=== PATIENT | male | born 1975 | race Caucasian/White ===

== ENCOUNTER 2016-12-08 20:30 | Emergency (ER) | payer MEDICAID ==
[2016-12-08] MEDS ORDERED: IBUPROFEN 200 MG TAB PO ONE (20:44)
--- NOTE | 2016-12-08 20:48 | EDPHY ---
H & P Stated Complaint: WALKING ALL DAY NOW BILAT FOOT PAIN AND BLISTERS Time Seen by Provider: 12/08/16 20:39 HPI/ROS: CHIEF COMPLAINT: Bilateral feet pain and blisters HISTORY OF PRESENT ILLNESS: 41-year-old homeless male with self-described poor fitting shoes taken ambulance to the emergency department complaining of blisters bilateral 1st and 2nd toes. Atraumatic. He self-medicated with alcohol and marijuana before coming to the ER. Denies abdominal pain. Denies chest pain. Denies nausea or vomiting. No burn. PRIMARY CARE PROVIDER: none REVIEW OF SYSTEMS: A ten point review of systems was performed and is negative with the exception of the items mentioned in the HPI PAST MEDICAL & SURGICAL HISTORY: No pertinent medical or surgical history SOCIAL HISTORY: Positive alcohol and marijuana use earlier today PHYSICAL EXAM (Prior to examination, patient consented to physical exam, hands were washed and my usual and customary physical exam procedures followed) 1) GENERAL: Well-developed, well-nourished, alert and oriented. Appears uncomfortable 2) HEAD: Normocephalic, atraumatic 3) HEENT: sclera anicteric . 4) NECK: Full range of motion, no meningeal signs. 5) LUNGS: Clear auscultation bilaterally 6) HEART: Regular rate and rhythm. 7) ABDOMEN: No guarding, no rebound, no focal tenderness, 8) MUSCULOSKELETAL: the patient has bilateral 1st and 2nd toes he has non infected blisters. No erythema. No induration. Soft compartments bilaterally. Negative Homans no palpable cord. DP PT pulses present and brisk bilaterally brisk capillary refill. Normal color normal temperature feet. 9) BACK: no visual or palpable abnormality. 10) SKIN: Blister to the toes 11) Psychiatric: Patient is oriented X 3, there is no agitation. DIFFERENTIAL DIAGNOSIS: no particular include but limited to cellulitis, blisters, trench foot - Personal History Current Tetanus/Diphtheria Vaccine: Yes Current Tetanus Diphtheria and Acellular Pertussis (TDAP): Yes - Medical/Surgical History Hx Asthma: No Hx Chronic Respiratory Disease: No Hx Diabetes: No Hx Cardiac Disease: No Hx Renal Disease: No Hx Cirrhosis: No Hx Alcoholism: No Hx HIV/AIDS: No Hx Splenectomy or Spleen Trauma: No Other PMH: ORTHO INJURIES. HERNIA REPAIR - Social History Smoking Status: Current every day smoker Constitutional: Initial Vital Signs Temperature (C) 36.5 C 12/08/16 20:34 Heart Rate 112 H 12/08/16 20:34 Respiratory Rate 18 12/08/16 20:34 Blood Pressure 139/82 H 12/08/16 20:34 O2 Sat (%) 97 12/08/16 20:34 O2 Delivery Mode Room Air Allergies/Adverse Reactions: No Known Allergies Allergy (Unverified 12/08/16 20:35) Home Medications: Medication Instructions Recorded NK [No Known Home Meds] 02/07/16 Medical Decision Making ED Course/Re-evaluation: I do not identify an emergent condition requiring requiring further diagnostic studies. He has no evidence of cellulitis or compartment syndrome. He has been given a fresh pair of socks and ibuprofen. Recommend elevation. Usual and customary feet and wound precautions provided. - Data Points Medications Given: Discontinued Medications Ibuprofen (Motrin) 800 mg PO EDNOW ONE Stop: 12/08/16 20:45 Last Admin: 12/08/16 21:00 Dose: 800 mg Departure - Departure Disposition: Home, Routine, Self-Care Clinical Impression: Blister of foot without infection Qualifiers: Encounter type: initial encounter Laterality: left Qualified Code(s): S90.822A - Blister (nonthermal), left foot, initial encounter Condition: Good Instructions: Blister (ED) Additional Instructions: Return to the ER if you develop redness, swelling, discharge, warmth to the wound, red streaks going up your leg, or any other symptoms that concern you. Referrals: [facility],. [Clinic] - 1-2 days without fail
[2016-12-08 21:05] VITALS: BP 128/82; PULSE 99; RESP 20; TEMP 97.9; O2SAT 96
== END 2016-12-08 21:18 | disposition home or self-care (01) ==
LOC: EDUNIT#
DX: R23.8 Other skin changes (principal); F17.200 Nicotine dependence, unspecified, uncomplicated

== ENCOUNTER 2017-12-01 15:17 | Emergency (ER) | payer MEDICAID ==
[~2017-12-01 15:17] MED LIST: CEPHALEXIN 500 MG CAP PO SCH; SULFAMETHOX/TMP 800/160 MG 1 TAB PO SCH
[2017-12-01] MEDS ORDERED: HYDROCODONE/APAP 5/325 TAB PO ONE (16:05)
[2017-12-01] MEDS ORDERED: IBUPROFEN 600 MG TAB PO ONE (16:05)
--- NOTE | 2017-12-01 16:11 | EDPHY ---
H & P Stated Complaint: L thumb-hand wrist up to elbow pain x 2 weeks--no known trauma Time Seen by Provider: 12/01/17 15:55 HPI/ROS: Chief complaint: Left thumb pain History of present illness: This is a 42-year-old male who presents to the emergency department for left thumb pain. Patient reports the onset of pain over the last 2 and a half weeks. There has been associated swelling. He believes this is secondary to frostbite as it began after he spent a night outside as he is homeless. He denies other potential precipitating factors including no trauma. No report of abnormal coolness in the thumb. No fevers. No other lesions. Review of systems: A 10 point review of systems was obtained and other than described above was negative - Personal History Current Tetanus/Diphtheria Vaccine: Yes Current Tetanus Diphtheria and Acellular Pertussis (TDAP): Yes Tetanus Vaccine Date: 2015 - Medical/Surgical History Hx Asthma: No Hx Chronic Respiratory Disease: No Hx Diabetes: No Hx Cardiac Disease: No Hx Renal Disease: No Hx Cirrhosis: No Hx Alcoholism: No Hx HIV/AIDS: No Hx Splenectomy or Spleen Trauma: No Other PMH: ORTHO INJURIES. HERNIA REPAIR - Social History Smoking Status: Current every day smoker - Physical Exam Exam: General Appearance: Alert and no distress. Eyes: Pupils equal and round no injection. Respiratory: Chest is non tender, lungs are clear to auscultation. Cardiac: regular rate and rhythm Gastrointestinal: Abdomen is soft and non tender, no masses, bowel sounds normal. Musculoskeletal: The patient is still able to move the PIP joint in the MCP joint of the left thumb. The rest the digits are unremarkable. Skin: Erythema and edema to the distal phalanx region of the left thumb. No red streaking suggestive of enteritis. Constitutional: Initial Vital Signs Temperature (C) 37.0 C 12/01/17 15:43 Heart Rate 91 12/01/17 15:43 Respiratory Rate 20 12/01/17 15:43 Blood Pressure 150/110 H 12/01/17 15:43 O2 Sat (%) 99 12/01/17 15:43 O2 Delivery Mode Room Air Allergies/Adverse Reactions: No Known Allergies Allergy (Verified 12/01/17 15:43) Home Medications: Medication Instructions Recorded Cephalexin [Keflex (*)] 500 mg PO QID 10 Days cap 12/01/17 Sulfamethox/Tmp 800/160 mg 1 tab PO BID 10 Days tab 12/01/17 [Bactrim Ds] Medical Decision Making - Diagnostics Imaging Results: Imaging Impressions Finger X-Ray 12/01/17 16:05 Impression: Suspicious for osteomyelitis of the tip of the thumb. If there is no clinical or laboratory evidence for infection, then a lytic tumor cannot be excluded. If the latter is pertinent, then MRI without and with contrast would be recommended. Imaging: I viewed and interpreted images myself ED Course/Re-evaluation: Patient is discussed with my primary supervising physician Dr. Belén Arthur. Patient presents to the emergency department for left thumb pain. Clinically it appears he has a cellulitis. X-ray is suspicious for an osteomyelitis. I have offered the patient admission to the hospital for further care. He has declined. I have had a lengthy discussion with him that if this infection is not controlled it could progress rapidly resulting in much more severe problems including loss of his digit or systemic infection that could result in . He has voiced understanding and still wishes to be discharged. He is competent to make this decision. He is given a dose of IV Ancef here in the emergency room. He is given the actual prescriptions of both Bactrim and Keflex. He is asked to return if symptoms worsen or if he changes his mind about admission. Patient voiced understanding. Differential Diagnosis: Included but not limited to cellulitis, osteomyelitis, felon, infectious tenosynovitis - Data Points Laboratory Results: Laboratory Results 12/01/17 17:35 12/01/17 17:35 12/01/17 12/01/17 17:35 17:35 WBC 11.73 10^3/uL H 10^3/uL (3.80-9.50) RBC 4.16 10^6/uL L 10^6/uL (4.40-6.38) Hgb 12.2 g/dL L g/dL (13.7-17.5) Hct 36.8 % L % (40.0-51.0) MCV 88.5 fL fL (81.5-99.8) MCH 29.3 pg pg (27.9-34.1) MCHC 33.2 g/dL g/dL (32.4-36.7) RDW 14.5 % % (11.5-15.2) Plt Count 254 10^3/uL 10^3/uL (150-400) MPV 11.8 fL H fL (8.7-11.7) Neut % (Auto) 72.9 % % (39.3-74.2) Lymph % (Auto) 13.9 % L % (15.0-45.0) [place] % (Auto) 11.5 % % (4.5-13.0) Eos % (Auto) 1.2 % % (0.6-7.6) Baso % (Auto) 0.2 % L % (0.3-1.7) Nucleat RBC Rel Count 0.0 % % (0.0-0.2) Absolute Neuts (auto) 8.56 10^3/uL H 10^3/uL (1.70-6.50) Absolute Lymphs (auto) 1.63 10^3/uL 10^3/uL (1.00-3.00) Absolute Monos (auto) 1.35 10^3/uL H 10^3/uL (0.30-0.80) Absolute Eos (auto) 0.14 10^3/uL 10^3/uL (0.03-0.40) Absolute Basos (auto) 0.02 10^3/uL 10^3/uL (0.02-0.10) Absolute Nucleated RBC 0.00 10^3/uL 10^3/uL (0-0.01) Immature Gran % 0.3 % % (0.0-1.1) Immature Gran # 0.03 10^3/uL 10^3/uL (0.00-0.10) Sodium 142 mEq/L mEq/L (135-145) Potassium 4.2 mEq/L mEq/L (3.5-5.2) Chloride 106 mEq/L mEq/L (97-110) Carbon Dioxide 24 mEq/l mEq/l (22-31) Anion Gap 12 mEq/L mEq/L (8-16) BUN 19 mg/dL mg/dL (7-23) Creatinine 0.8 mg/dL mg/dL (0.7-1.3) Estimated GFR > 60 Glucose 115 mg/dL H mg/dL (70-100) Calcium 8.8 mg/dL mg/dL (8.5-10.4) Medications Given: Discontinued Medications Hydrocodone Bitart/Acetaminophen ([place] 5/325) 1 tab PO EDNOW ONE Stop: 12/01/17 16:06 Last Admin: 12/01/17 16:10 Dose: 1 tab Sodium Chloride (Ns) 500 mls @ 1,000 mls/hr IV EDNOW ONE PRN Reason: Protocol Stop: 12/01/17 17:24 Last Admin: 12/01/17 17:35 Dose: 500 mls Vancomycin/Sodium Chloride (Vancomycin 1 Gm (Premix)) 250 mls @ 250 mls/hr IV EDNOW ONE PRN Reason: Protocol Stop: 12/01/17 17:55 Last Admin: 12/01/17 17:44 Dose: Not Given Cefazolin Sodium/Dextrose (Ancef 1 Gm (Premix)) 50 mls @ 200 mls/hr IV EDNOW ONE Stop: 12/01/17 17:59 Last Admin: 12/01/17 17:42 Dose: 50 mls Ibuprofen (Motrin) 600 mg PO EDNOW ONE Stop: 12/01/17 16:06 Last Admin: 12/01/17 16:10 Dose: 600 mg Trimethoprim/Sulfamethoxazole (Bactrim Ds) 1 ea PO EDNOW ONE PRN Reason: Protocol Stop: 12/01/17 17:02 Last Admin: 12/01/17 17:34 Dose: 1 ea Departure - Departure Disposition: Against Medical Advice Clinical Impression: Cellulitis of thumb, left, Osteomyelitis Condition: Fair Instructions: Cellulitis (ED), Osteomyelitis (ED) Additional Instructions: You have been offered admission to the hospital. You have declined. This is against medical advice. You have a potentially serious infection that could lead to loss of her thumb Referrals: NONE *PRIMARY CARE P,. [Primary Care Provider] - As per Instructions Selena Mcgowan MD [Medical Doctor] - As per Instructions [facility],. [Clinic] - As per Instructions Prescriptions: Cephalexin [Keflex (*)] 500 mg PO QID 10 Days cap Sulfamethox/Tmp 800/160 mg [Bactrim Ds] 1 tab PO BID 10 Days tab
[2017-12-01] MEDS ORDERED: NS 500 ML IV ONE (16:55)
[2017-12-01] MEDS ORDERED: VANCOMYCIN HCL/NORMAL SALINE 250 ML IV ONE (16:56)
[2017-12-01] MEDS ORDERED: ceFAZolin 1 GM in NS 100 ML IV ONE (17:01)
[2017-12-01] MEDS ORDERED: SULFAMETHOX/TMP 800/160 MG 1 TAB PO ONE (17:01)
[2017-12-01 18:26] LABS: PLATELET COUNT 254 10^3/uL (150-400)
[2017-12-01 19:49] VITALS: BP 138/76
== END 2017-12-01 18:45 | disposition left against medical advice (07) ==
DX: L03.012 Cellulitis of left finger (principal); M86.9 Osteomyelitis, unspecified; E86.9 Volume depletion, unspecified; F17.200 Nicotine dependence, unspecified, uncomplicated
CPT/HCPCS: 96365; J0690

== ENCOUNTER 2017-12-02 04:05 | Inpatient (IN) | payer MEDICAID ==
[2017-12-02] MEDS ORDERED: KETOROLAC 15 MG/1 ML SDV IVP ONE (05:10)
[2017-12-02] MEDS ORDERED: NS 1,000 ML IV ONE (05:10)
[2017-12-02] MEDS ORDERED: HYDROmorphONE/DILAUDID 2 MG/ML INJ IVP ONE (05:10)
[2017-12-02 05:41] LABS: PLATELET COUNT 238 10^3/uL (150-400)
--- NOTE | 2017-12-02 05:41 | EDPHY ---
H & P Stated Complaint: L thumb pain seen yesterday Time Seen by Provider: 12/02/17 04:44 HPI/ROS: HPI The patient presents with left thumb pain which has been present for the last several days and getting progressively worse. He was seen in the emergency department earlier today, diagnosed with osteomyelitis, received Ancef and vancomycin, felt better and said that he wanted to go home though it was recommended that he be admitted. He was discharged with Keflex and Bactrim. He has not filled these prescriptions. His pain is more severe in his thumb seems more swollen to him now. He has not any fevers or chills. He denies any trauma to the area.. REVIEW OF SYSTEMS Constitutional: No fever, no chills. Eyes: No discharge. ENT: No sore throat. Cardiovascular: No chest pain, no palpitations. Respiratory: No cough, no shortness of breath. Gastrointestinal: No abdominal pain, no vomiting. Genitourinary: No hematuria. Musculoskeletal: No back pain. Skin: No rashes. Neurological: No headache. PMHx: history of hernia repair Soc Hx: Homeless, smoker, PHYSICAL General Appearance: Alert, no distress Eyes: Pupils equal and round no pallor or injection ENT, Mouth: Mucous membranes moist Respiratory: There are no retractions, lungs are clear to auscultation Cardiovascular: Regular rate and rhythm Gastrointestinal: Abdomen is soft and non-tender, no masses, bowel sounds normal Neurological: A&O, moves all extremities Skin: Warm and dry, no rashes Musculoskeletal: Left thumb is diffusely edematous and erythematous, there is mobility at the MCP and PIP joints, however this is limited secondary to pain, he has brisk cap refill of the digit, there is some slight whitish discoloration at the tip of the thumb, the thumb is warm Extremities: symmetrical, full range of motion Psychiatric: Patient is oriented X 3, there is no agitation Source: Patient Exam Limitations: No limitations - Personal History Current Tetanus/Diphtheria Vaccine: Yes Tetanus Vaccine Date: 2015 - Medical/Surgical History Hx Asthma: No Hx Chronic Respiratory Disease: No Hx Diabetes: No Hx Cardiac Disease: No Hx Renal Disease: No Hx Cirrhosis: No Hx Alcoholism: No Hx HIV/AIDS: No Hx Splenectomy or Spleen Trauma: No Other PMH: ORTHO INJURIES. HERNIA REPAIR - Social History Smoking Status: Current every day smoker Constitutional: Initial Vital Signs Temperature (C) 36.3 C 12/02/17 04:07 Heart Rate 111 H 12/02/17 04:07 Respiratory Rate 18 12/02/17 04:07 Blood Pressure 129/83 H 12/02/17 04:07 O2 Sat (%) 99 12/02/17 04:07 O2 Delivery Mode Room Air Allergies/Adverse Reactions: No Known Allergies Allergy (Verified 12/01/17 15:43) Home Medications: Medication Instructions Recorded Cephalexin [Keflex (*)] 500 mg PO QID 10 Days cap 12/01/17 Sulfamethox/Tmp 800/160 mg 1 tab PO BID 10 Days tab 12/01/17 [Bactrim Ds] Medical Decision Making Differential Diagnosis: This is a 42-year-old homeless man who was diagnosed earlier today with left thumb osteomyelitis and received Ancef and vancomycin, he refused admission at that time and was discharged and now returns with worsening thumb pain. This is atraumatic. X-rays were used to diagnose the osteomyelitis earlier. He has not had any systemic signs of illness such as fever, chills, nausea, vomiting. In the emergency department, patient was given IV fluids, he was given medication for pain with some improvement in his symptoms. Labs were checked and revealed an increasing leukocytosis now to 23,000. ESR and CRP are elevated. I did not repeat x-ray given no new trauma. I consulted with the hospitalist Dr. Croft and we plan to admit the patient. I have also consulted with the hand surgeon pharmacy operations specialist Dr. Mcgowan and he will see the patient in consultation later today. The patient was given additional antibiotics and was updated on the treatment plan. Differential diagnosis includes osteomyelitis, felon, paronychia. - Data Points Laboratory Results: Laboratory Results 12/02/17 05:22 12/02/17 05:22 12/02/17 12/02/17 05:22 05:22 WBC 23.57 10^3/uL H 10^3/uL (3.80-9.50) RBC 4.16 10^6/uL L 10^6/uL (4.40-6.38) Hgb 12.4 g/dL L g/dL (13.7-17.5) Hct 36.3 % L % (40.0-51.0) MCV 87.3 fL fL (81.5-99.8) MCH 29.8 pg pg (27.9-34.1) MCHC 34.2 g/dL g/dL (32.4-36.7) RDW 14.6 % % (11.5-15.2) Plt Count 238 10^3/uL 10^3/uL (150-400) MPV 11.1 fL fL (8.7-11.7) Neut % (Auto) 86.9 % H % (39.3-74.2) Lymph % (Auto) 4.5 % L % (15.0-45.0) [place] % (Auto) 7.8 % % (4.5-13.0) Eos % (Auto) 0.1 % L % (0.6-7.6) Baso % (Auto) 0.1 % L % (0.3-1.7) Nucleat RBC Rel Count 0.0 % % (0.0-0.2) Absolute Neuts (auto) 20.48 10^3/uL H 10^3/uL (1.70-6.50) Absolute Lymphs (auto) 1.06 10^3/uL 10^3/uL (1.00-3.00) Absolute Monos (auto) 1.84 10^3/uL H 10^3/uL (0.30-0.80) Absolute Eos (auto) 0.02 10^3/uL L 10^3/uL (0.03-0.40) Absolute Basos (auto) 0.02 10^3/uL 10^3/uL (0.02-0.10) Absolute Nucleated RBC 0.00 10^3/uL 10^3/uL (0-0.01) Immature Gran % 0.6 % % (0.0-1.1) Immature Gran # 0.14 10^3/uL H 10^3/uL (0.00-0.10) RBC/WBC/PLT Morphology TNP Platelet Estimate TNP Smear Review By Pending ESR 30 MM/HR H MM/HR (0-15) Sodium 143 mEq/L mEq/L (135-145) Potassium 4.4 mEq/L mEq/L (3.5-5.2) Chloride 109 mEq/L mEq/L (97-110) Carbon Dioxide 22 mEq/l mEq/l (22-31) Anion Gap 12 mEq/L mEq/L (8-16) BUN 10 mg/dL mg/dL (7-23) Creatinine 0.7 mg/dL mg/dL (0.7-1.3) Estimated GFR > 60 Glucose 92 mg/dL mg/dL (70-100) Calcium 9.0 mg/dL mg/dL (8.5-10.4) C-Reactive Protein 32.7 mg/L H mg/L (<10.0) Medications Given: Oxycodone HCl (Oxycodone Ir) 5 - 10 mg PO Q3HRS PRN PRN Reason: Pain, Severe Able to Take PO Stop: 12/12/17 05:55 Last Admin: 12/02/17 06:43 Dose: 5 mg Discontinued Medications Hydromorphone HCl (Dilaudid) 0.5 mg IVP EDNOW ONE Stop: 12/02/17 05:11 Last Admin: 12/02/17 05:27 Dose: 0.5 mg Sodium Chloride (Ns) 1,000 mls @ 0 mls/hr IV EDNOW ONE; Wide Open PRN Reason: Protocol Stop: 12/02/17 05:11 Last Admin: 12/02/17 05:28 Dose: 1,000 mls Ketorolac Tromethamine (Toradol) 15 mg IVP EDNOW ONE Stop: 12/02/17 05:11 Last Admin: 12/02/17 05:27 Dose: 15 mg Departure - Departure Disposition: [facility] Clinical Impression: Osteomyelitis Qualifiers: Osteomyelitis type: unspecified type Osteomyelitis location: hand Laterality: left Qualified Code(s): M86.9 - Osteomyelitis, unspecified Leukocytosis Qualifiers: Leukocytosis type: unspecified Qualified Code(s): D72.829 - Elevated white blood cell count, unspecified Condition: Fair
[2017-12-02] MEDS ORDERED: ONDANSETRON 4 MG/2 ML VIAL IVP PRN (05:56)
[2017-12-02] MEDS: oxyCODONE IR 5 MG TAB PO PRN ×3 (06:43→20:19)
--- NOTE | 2017-12-02 06:46 | PDGENHP ---
History and Physical - Chief Complaint L thumb pain - History of Present Illness 42 yo homeless M w/ minimal PMHx presents with L thumb pain. Patient states his L thumb has been hurting for a few weeks. Over the last 2 days it has become swollen and much more painful. He does not recall any trauma to his thumb. He has not had any prior infectious issues with his thumb either. He was seen in the ED yesterday and refused admission. He was given oral antibiotics but could not tolerate the pain so he returned to the ED. He admits to using MJ regularly and IV methamphetamine last 3 months ago. He denies any recent IVDU. History Information - Allergies/Home Medication List Allergies/Adverse Reactions: No Known Allergies Allergy (Verified 12/01/17 15:43) I have personally reviewed and updated: family history, medical history - Past Medical History no pertinent PMH - Surgical History Reports: hernia repair - Family History Positive for: hypertension - Social History Smoking Status: Current every day smoker Drug Use: Marijuana, Other (IV meth last 3 months ago) Review of Systems Review of Systems: ROS: 10pt was reviewed & negative except for what was stated in HPI & below Physical Exam Physical Exam: Temp Pulse Resp BP Pulse Ox 36.6 C 94 18 146/98 H 96 12/02/17 06:39 12/02/17 06:39 12/02/17 06:39 12/02/17 06:39 12/02/17 06:39 Constitutional: uncomfortable, unkempt Eyes: PERRL, EOMI Ears, Nose, Mouth, Throat: moist mucous membranes, no oral mucosal ulcers Cardiovascular: no murmur, rub, or gallop, tachycardia Respiratory: no respiratory distress, clear to auscultation Gastrointestinal: normoactive bowel sounds, soft, non-tender abdomen Skin: warm, erythema (L thumb, swollen) Musculoskeletal: full muscle strength, other (Swollen distal L thumb) Neurologic: AAOx3, CN II-XII Intact Psychiatric: interacting appropriately, not anxious Lab Data & Imaging Review 12/02/17 05:22 12/02/17 05:22 WBC 23.57 10^3/uL (3.80-9.50) H 12/02/17 05:22 RBC 4.16 10^6/uL (4.40-6.38) L 12/02/17 05:22 Hgb 12.4 g/dL (13.7-17.5) L 12/02/17 05:22 Hct 36.3 % (40.0-51.0) L 12/02/17 05:22 MCV 87.3 fL (81.5-99.8) 12/02/17 05:22 MCH 29.8 pg (27.9-34.1) 12/02/17 05:22 MCHC 34.2 g/dL (32.4-36.7) 12/02/17 05:22 RDW 14.6 % (11.5-15.2) 12/02/17 05:22 Plt Count 238 10^3/uL (150-400) 12/02/17 05:22 MPV 11.1 fL (8.7-11.7) 12/02/17 05:22 Neut % (Auto) 86.9 % (39.3-74.2) H 12/02/17 05:22 Lymph % (Auto) 4.5 % (15.0-45.0) L 12/02/17 05:22 [place] % (Auto) 7.8 % (4.5-13.0) 12/02/17 05:22 Eos % (Auto) 0.1 % (0.6-7.6) L 12/02/17 05:22 Baso % (Auto) 0.1 % (0.3-1.7) L 12/02/17 05:22 Nucleat RBC Rel Count 0.0 % (0.0-0.2) 12/02/17 05:22 Absolute Neuts (auto) 20.48 10^3/uL (1.70-6.50) H 12/02/17 05:22 Absolute Lymphs (auto) 1.06 10^3/uL (1.00-3.00) 12/02/17 05:22 Absolute Monos (auto) 1.84 10^3/uL (0.30-0.80) H 12/02/17 05:22 Absolute Eos (auto) 0.02 10^3/uL (0.03-0.40) L 12/02/17 05:22 Absolute Basos (auto) 0.02 10^3/uL (0.02-0.10) 12/02/17 05:22 Absolute Nucleated RBC 0.00 10^3/uL (0-0.01) 12/02/17 05:22 Immature Gran % 0.6 % (0.0-1.1) 12/02/17 05:22 Immature Gran # 0.14 10^3/uL (0.00-0.10) H 12/02/17 05:22 RBC/WBC/PLT Morphology TNP 12/02/17 05:22 Platelet Estimate TNP 12/02/17 05:22 ESR 30 MM/HR (0-15) H 12/02/17 05:22 Sodium 143 mEq/L (135-145) 12/02/17 05:22 Potassium 4.4 mEq/L (3.5-5.2) 12/02/17 05:22 Chloride 109 mEq/L (97-110) 12/02/17 05:22 Carbon Dioxide 22 mEq/l (22-31) 12/02/17 05:22 Anion Gap 12 mEq/L (8-16) 12/02/17 05:22 BUN 10 mg/dL (7-23) 12/02/17 05:22 Creatinine 0.7 mg/dL (0.7-1.3) 12/02/17 05:22 Estimated GFR > 60 12/02/17 05:22 Glucose 92 mg/dL (70-100) 12/02/17 05:22 Calcium 9.0 mg/dL (8.5-10.4) 12/02/17 05:22 C-Reactive Protein 32.7 mg/L (<10.0) H 12/02/17 05:22 Imaging Review: L thumb XR (personally reviewed): Suspicious for OM of tip of L thumb. Assessment & Plan Assessment: 42 yo homeless male p/w likely OM of L thumb. Plan: 1. Sepsis 2/2 suspected OM of L thumb - 2/4 SIRS criteria (HR, WBC) present on admission. Thumb pain for 2 weeks; increased swelling and pain over last 2 days. He does not recall trauma or other inciting injury. XR (personally reviewed) suspicious for OM of tip of L thumb. - Blood cultures, ESR/CRP - Vancomycin IV for now, ID consult placed - Hand surgery consulted (Dr. Selena Mcgowan), will see later today - Discussed case w/ Dr. Tena - May need TTE if blood cultures positive to rule out endocarditis 2. Polysubstance abuse - Admit to regular MJ use; also to IV meth use last 3 months ago. - Drug screen ordered Diet - Regular Code - Full Ppx - LMWH Dispo - Admit under inpatient status noting need for IV antibiotics and further diagnostic work-up
[2017-12-02] MEDS: ENOXAPARIN 40 MG/0.4 ML SYR SC SCH ×2 (08:10→08:11)
[2017-12-02] MEDS: VANCOMYCIN 1.25 GM in NS 250 ML IV SCH ×2 (08:10→20:18)
[2017-12-02] MEDS: ACETAMINOPHEN 325 MG TAB PO PRN ×3 (09:21→20:18)
[2017-12-02] MEDS ORDERED: NS 1,000 ML IV SCH (11:00)
[2017-12-02] MEDS: IBUPROFEN 200 MG TAB PO PRN ×2 (11:59→18:17)
--- NOTE | 2017-12-02 12:52 | GCON ---
[f rep st] CONSULTATION DATE OF CONSULTATION: 12/02/2017 REASON FOR CONSULTATION: Infection, distal left thumb. HISTORY: A 42-year-old homeless male who came to [place] about 5 years ago from [place], presents to the emergency room 2 days in a row for left thumb pain. Imaging suggested some distal loss of bone and swelling of his left thumb. Blood cultures were taken from both days and are no growth to date. Patient was admitted for IV antibiotics and surgical management of this wound. Patient has left thumb pain that radiates up his arm. He denies any recent specific injury. 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 He states that his finger has been swelling of the last couple days. He does pick at his nails and bite his cuticles and does feel that this infection could be related. He is unclear whether he has had fevers, but he has had some sweating. No change in weigh, and his appetite is good. He has had a remote history of IV drug use, specifically meth. He has never tried heroin or cocaine. He uses marijuana on a daily basis and less frequently alcohol, which he has self decreased. PAST MEDICAL/SURGICAL HISTORY: Hernia repair. Denies history of MRSA. FAMILY HISTORY: Positive for hypertension. SOCIAL HISTORY: Daily smoker, daily marijuana, occasional alcohol. No methamphetamine for 3 months. He previously worked on [employer] in the [employer] [facility] off [place]. He moved to [place] 5 years ago for a change of pace. He has 4 children and 1 grandchild. He reports past HIV testing that was negative. ALL: NKDA MEDS: vancomycin 1.25gm IV q12h REVIEW OF SYSTEMS: A complete 10-point review of systems was performed and was negative except as mentioned in the HPI. PHYSICAL EXAMINATION: VITAL SIGNS: Blood pressure 137/90, heart rate 92, respiratory rate 16, saturation 96% on room air, temperature 36.8. GENERAL: This is a cooperative muscular but thin male lying in bed in mild distress secondary to some pain. HEENT: Poor dentition. No obvious dental caries. Moist mucous membranes. NECK: Supple. CARDIOVASCULAR: Regular rate. No murmurs. CHEST: Clear to auscultation bilaterally. ABDOMEN: Scaphoid, soft, and nontender. Bowel sounds present. EXTREMITIES: Extensive tattooing, some self tattoos. Left thumb is markedly edematous (roughly 2-3 times size the other thumb) that is tense and very tender to palpation. He has no lymphangitis. NEUROLOGIC: Alert and oriented x4. Moving all 4 extremities equally. Cranial nerves were grossly intact. LABORATORY DATA: White count 23,000, hematocrit 36, platelets 238 with 86% neutrophils. ESR 30. CRP 37. Creatinine 0.7. Blood cultures from the and the 02 of December are pending. Plain film was reviewed personally by me with some loss of distal bony process of the thumb. ASSESSMENT AND PLAN: A 42-year-old male with marked thumb swelling and pain. Suspect underlying abscess and OM. Cannot completely exclude that bony changes on plain film may be related to prior left thumb injury. This infection requires surgical debridement. Suspect complication of paronychia related to biting his nails. Staph and strep coverage with coverage including MRSA due to risk factors, including homeless status, is reasonable. Creatinine is normal. Will continue vancomycin 1.25 g IV q.12; will check a trough before the 4th dose. Will continue to monitor 4 sets of blood cultures. Will await assessment by Orthopedics. May need MRI to better delineate underlying process. Thank you for this consultation. Will continue to follow along on a daily basis. /[id number]/MODL MTDD
--- NOTE | 2017-12-02 13:48 | HOSPPROG ---
Hospitalist Progress Note Assessment/Plan: Patient is a 42-year-old male who presented the emergency room with left thumb pain. He is currently homeless and came to [place] approximately 5 years ago from [facility]. He was seen in the emergency room yesterday and declined admission. He was given oral antibiotics but did not tolerate them. He admits to using cannabis regularly and last IV methamphetamine was approximately 3 months ago. He denies any recent IV drug use. I reviewed his care with Dr. Story. There is concern for underlying abscess. Orthopedics will be seeing him later this afternoon. *sepsis (elevated heart rate, high wbc) -blood cx sent *thumb swelling -concern for abscess -Dr Mcgowan to see *Leukocytosis -due to the above *Polysubstance abuse -Cannibis use Plan: cont the above care. Start IV fluids, patient is very dehydrated. Subjective: [place] is c/o pain on his left thumb area. Objective: Vital Signs Temp Pulse Resp BP Pulse Ox 37.2 C 100 18 140/92 H 97 12/02/17 12:00 12/02/17 12:00 12/02/17 12:00 12/02/17 12:00 12/02/17 12:00 12/01/17 12/02/17 12/03/17 05:59 05:59 05:59 Intake Total 2382 Output Total 1375 Balance 1007 - Physical Exam Constitutional: chronically ill appearing, unkempt Eyes: PERRL, scleral injection Ears, Nose, Mouth, Throat: hearing normal Cardiovascular: regular rate and rhythym, no murmur, rub, or gallop Respiratory: no respiratory distress Skin: other (the left thumb with cracked skin on top of it, base of nail red, tender, swollen) Musculoskeletal: full muscle strength Neurologic: AAOx3 Psychiatric: interacting appropriately ICD10 Worksheet Patient Problems: Problems Problem Status Onset Leukocytosis Acute Osteomyelitis Acute Metacarpal bone fracture Acute
--- NOTE | 2017-12-02 17:22 | PDMN ---
Medical Necessity Medical necessity: est los>2mn for sepsis r/t OM L thumb, w/ elevated HR and WBC ; admit for IV abx, further w/u, ortho consult, follow cx's; comorbid IVDA; per order and H&P
--- NOTE | 2017-12-02 18:39 | GDS ---
[f rep st] DISCHARGE SUMMARY CURRENT COMPLAINT: Left thumb pain. HISTORY OF PRESENT ILLNESS: The patient is a 42-year-old male who states that his thumb has been swo llen and tender for several weeks. It has become apparently more swollen and more painful over the l ast couple of days. He does not remember any trauma particularly to the thumb. He was originally se en in the emergency room, refusing admission. He was given oral antibiotics. He returned to the [facility], however, with significant pain and was then admitted, placed on IV antibiotics. I was asked to see the patient for further evaluation. PHYSICAL EXAMINATION: EXTREMITIES: The patient's thumb is swollen. There does not appear to be any distinct loculation of fluid that is noticeable. He does appear to be neurologically intact to the radial and ulnar border of the thumb, and he is able to use the EPL and FPL without severe pain. He has no streaking up his arm, and he is nontender along the flexor sheath associated with the thumb pa st the MCP joint. LABORATORY DATA: Labs revealed a high white count, as well as a high sedimentation rate and C-reacti ve protein. X-ray exam reveals some lysis of the tip of his distal phalanx of his thumb. ASSESSMENT AND PLAN: The patient is status post left thumb infection. He has been afebrile since hi s visit here today. We will continue to follow his labs since he does not have a distinct loculated area of fluid to debride. We are holding off on doing any surgical treatment at this time. We will continue to follow him during his stay in the hospital. /[id number]/MODL
[2017-12-03] MEDS: oxyCODONE IR 5 MG TAB PO PRN ×5 (01:21→20:58)
[2017-12-03] MEDS: IBUPROFEN 200 MG TAB PO PRN ×3 (01:21→20:58)
[2017-12-03] MEDS: ACETAMINOPHEN 325 MG TAB PO PRN ×3 (04:39→17:14)
[2017-12-03 05:47] LABS: PLATELET COUNT 201 10^3/uL (150-400)
[2017-12-03] MEDS: VANCOMYCIN 1.25 GM in NS 250 ML IV SCH (08:40)
[2017-12-03] MEDS: ENOXAPARIN 40 MG/0.4 ML SYR SC SCH (08:43)
[2017-12-03] MEDS ORDERED: ZOLPIDEM TARTRATE 5 MG TAB PO PRN (08:43)
[2017-12-03] MEDS ORDERED: LORazepam 2 MG/ML INJ IVP ONE ×2 (08:44→11:45)
--- NOTE | 2017-12-03 08:44 | PCMIDPN ---
Assessment/Plan: #Painful and swollen left thumb highly suspicious for complicated paronychia with underlying abscess. Strongly suspect need I and D but orthopedic service unwilling at this point. No change in exam today after 1 days of antibiotics --Will obtain MRI to better delineate underlying disease. --continue vancomycin. Will increase dose to 1 g IV Q 8, okay to give 1.25gm dose now #Drug use: Screen HCV, HBV, HIV meds vancomycin 1.25gm IV q12h, #2 Subjective: patient c/o inability to sleep and pain L thumb Objective: Vital Signs Temp Pulse Resp BP Pulse Ox 36.9 C 79 15 114/64 98 12/03/17 07:46 12/03/17 07:46 12/03/17 07:46 12/03/17 07:46 12/03/17 07:46 Laboratory Results 12/03/17 05:02 12/02/17 12/03/17 12/04/17 05:59 05:59 05:59 Intake Total 4257 Output Total 3800 Balance 457 ESR 33 MM/HR (0-15) H 12/03/17 05:02 C-Reactive Protein 60.6 mg/L (<10.0) H 12/03/17 05:02 - Physical Exam General Appearance: alert, no apparent distress Respiratory: lungs clear, No accessory muscle use Neck: supple Cardiac/Chest: regular rate, rhythm Extremities: inflammation, swelling (distal L thumb), other (Tenderness & swelling distal L thumb, cap refill decreased a bit but lymphangitis, radial pulse intact) Skin: No rash Neuro/Psych: alert, normal mood/affect ICD10 Worksheet Patient Problems: Problems Problem Status Onset Leukocytosis Acute Osteomyelitis Acute Metacarpal bone fracture Acute
--- NOTE | 2017-12-03 10:34 | SOAPPROG ---
SOAP Progress Note Assessment/Plan: Assessment: Plan: -will continue to monitor may need i&d if not responsive to abx 12/03/17 10:33 Subjective: Reports no improvement in pain or sx. Objective: Vital Signs Temp Pulse Resp BP Pulse Ox 36.9 C 79 15 114/64 98 12/03/17 07:46 12/03/17 07:46 12/03/17 07:46 12/03/17 07:46 12/03/17 07:46 Laboratory Results 12/03/17 05:02 12/02/17 12/03/17 12/04/17 05:59 05:59 05:59 Intake Total 4257 Output Total 3800 Balance 457 Thumb still swollen, no improvement from yesterday, erythema and tenderness of distal and prox phalynx - Time Spent With Patient Time Spent With Patient: 10 - Pending Discharge Pending Discharge Within 24 Hours: No Pending Discharge Within 48 Hours: No ICD10 Worksheet Patient Problems: Problems Problem Status Onset Leukocytosis Acute Osteomyelitis Acute Metacarpal bone fracture Acute
[2017-12-03] MEDS ORDERED: GADOBUTROL 10 ML VIAL IVP ONE (12:16)
[2017-12-03 12:59] LABS: HEPATITIS B SURFACE ANTIGEN NEGATIVE (NEGATIVE)
--- NOTE | 2017-12-03 13:15 | HOSPPROG ---
Hospitalist Progress Note Assessment/Plan: Patient is a 42-year-old male who presented the emergency room with left thumb pain. He is currently homeless and came to [place] approximately 5 years ago from [facility]. He was seen in the emergency room one day prior and declined admission. He was given oral antibiotics but did not tolerate them. He admits to using cannabis regularly and last IV methamphetamine was approximately 3 months ago. He denies any recent IV drug use. I rounded and reviewed his care with Dr. Story. There is concern for underlying abscess. First encounter, chart reviewed. *sepsis (elevated heart rate, high wbc) -blood cx positive but not ID -sepsis resolved *thumb swelling -concern for abscess -MRI ordered -appreciate ortho -cont IV vanco *Leukocytosis -due to the above *Polysubstance abuse -Cannibis use *insomnia -ambien Plan: cont the above care. await MRI follow blood cultures Subjective: C/O thumb pain and can't sleep. Objective: Vital Signs Temp Pulse Resp BP Pulse Ox 36.9 C 68 16 124/68 H 97 12/03/17 11:29 12/03/17 11:29 12/03/17 11:29 12/03/17 11:29 12/03/17 11:29 Laboratory Results 12/03/17 05:02 12/02/17 12/03/17 12/04/17 05:59 05:59 05:59 Intake Total 4257 Output Total 3800 Balance 457 - Physical Exam Constitutional: chronically ill appearing, unkempt, cachectic Eyes: PERRL, anicteric sclera, EOMI Ears, Nose, Mouth, Throat: moist mucous membranes, hearing normal, ears appear normal Cardiovascular: regular rate and rhythym, No JVD, No edema Respiratory: no respiratory distress, no rales or rhonchi, clear to auscultation Gastrointestinal: No tenderness, No ascites, No guarding, No rebound Skin: warm, erythema, No induration Musculoskeletal: normal joint ROM, joint tenderness, generalized weakness Neurologic: AAOx3 Psychiatric: not anxious, not encephalopathic, poor insight, poor judgement ICD10 Worksheet Patient Problems: Problems Problem Status Onset Metacarpal bone fracture Acute Osteomyelitis Acute Leukocytosis Acute
[2017-12-03 13:16] LABS: HEPATITIS C ANTIBODY TOTAL REACTIVE (NEGATIVE); HIV TYPE 1 AND 2 NEGATIVE (NEGATIVE)
--- NOTE | 2017-12-03 14:09 | ASMTCMCOM ---
CM Note CM Note Notes: Pt in for L thumb pain, may need I & D and is currently on IV Vanco. Pt is homeless and reports cannabis use and IV meth use 3 mos ago. Ortho and ID involved in pt care. CM to follow. Date Signed: 12/03/2017 02:08 PM Electronically Signed By:JEFF Craft
[2017-12-03] MEDS: VANCOMYCIN HCL/NORMAL SALINE 250 ML IV SCH (17:01)
[2017-12-03] MEDS: MELATONIN 3 MG TAB PO SCH (20:58)
[2017-12-04] MEDS: VANCOMYCIN HCL/NORMAL SALINE 250 ML IV SCH ×2 (00:28→09:23)
[2017-12-04] MEDS: ACETAMINOPHEN 325 MG TAB PO PRN (06:10)
[2017-12-04] MEDS: oxyCODONE IR 5 MG TAB PO PRN ×5 (06:10→23:12)
--- NOTE | 2017-12-04 09:12 | SOAPPROG ---
CHARI Progress Note Assessment/Plan: Assessment: Plan: - pt will undergo I&D for osteomyelitis this afternoon w/ Dr. Mcgowan 12/03/17 10:33 12/04/17 09:11 Subjective: Pt continues to complain of severe pain. Objective: Vital Signs Temp Pulse Resp BP Pulse Ox 36.7 C 83 16 112/80 95 12/04/17 08:00 12/04/17 08:00 12/04/17 08:00 12/04/17 08:00 12/04/17 08:00 Laboratory Results 12/03/17 05:02 12/03/17 12/04/17 12/05/17 05:59 05:59 05:59 Intake Total 4257 790 Output Total 3800 650 Balance 457 140 no improvement over yesterday - Time Spent With Patient Time Spent With Patient: 5 - Pending Discharge Pending Discharge Within 24 Hours: No Pending Discharge Within 48 Hours: No ICD10 Worksheet Patient Problems: Problems Problem Status Onset Leukocytosis Acute Osteomyelitis Acute Metacarpal bone fracture Acute
[2017-12-04] MEDS: ENOXAPARIN 40 MG/0.4 ML SYR SC SCH (09:25)
--- NOTE | 2017-12-04 10:10 | PCMIDPN ---
Assessment/Plan: # osteomyelitis of left thumb, planned debridement in the OR today. No change in the degree of swelling of the distal thumb. --send cultures from the OR --recheck vancomycin trough today with increased dose yesterday --labs tomorrow am #Drug use: HIV negative, hepatitis-C antibody positive. --need to discuss hepatitis C positive status with patient meds vancomycin 1gm IV q8h, #3 Microbiology 12/02 blood cultures (2) no growth today Subjective: patient reports sleeping better no diarrhea Objective: Vital Signs Temp Pulse Resp BP Pulse Ox 36.7 C 83 16 112/80 95 12/04/17 08:00 12/04/17 08:00 12/04/17 08:00 12/04/17 08:00 12/04/17 08:00 Laboratory Results 12/03/17 05:02 12/03/17 12/04/17 12/05/17 05:59 05:59 05:59 Intake Total 4257 790 Output Total 3800 650 Balance 457 140 ESR 33 MM/HR (0-15) H 12/03/17 05:02 C-Reactive Protein 60.6 mg/L (<10.0) H 12/03/17 05:02 General Appearance: alert, no apparent distress Respiratory: lungs clear, No accessory muscle use Neck: supple Cardiac/Chest: regular rate, rhythm Extremities: inflammation, swelling distal L thumb, Tenderness & swelling distal L thumb, cap refill decreased a bit but lymphangitis, radial pulse intact Skin: No rash, many tattoos Neuro/Psych: alert, normal mood/affect ICD10 Worksheet Patient Problems: Problems Problem Status Onset Leukocytosis Acute Osteomyelitis Acute Metacarpal bone fracture Acute
--- NOTE | 2017-12-04 11:19 | HOSPPROG ---
Hospitalist Progress Note Assessment/Plan: Patient is a 42-year-old male who presented the emergency room with left thumb pain. He is currently homeless and came to [place] approximately 5 years ago from [facility]. He was seen in the emergency room one day prior and declined admission. He was given oral antibiotics but did not tolerate them. He admits to using cannabis regularly and last IV methamphetamine was approximately 3 months ago. He denies any recent IV drug use. I rounded and reviewed his care with Dr. Story. *sepsis (elevated heart rate, high wbc) -blood cx positive from previous visit -sepsis resolved *osteomyelitis of left thumb, -planned debridement in the OR today. -No change in the degree of swelling of the distal thumb -MRI reviewed -appreciate ortho -cont IV vanco *Leukocytosis -due to the above *Polysubstance abuse -Cannibis use -HIV negative, *hepatitis-C antibody positive. -review with pt *insomnia -ambien Plan: cont the above care. to OR today follow blood cultures Subjective: Feeling ok. Still having thumb pain. Objective: Vital Signs Temp Pulse Resp BP Pulse Ox 36.7 C 83 16 112/80 95 12/04/17 08:00 12/04/17 08:00 12/04/17 08:00 12/04/17 08:00 12/04/17 08:00 Laboratory Results 12/03/17 05:02 12/03/17 12/04/17 12/05/17 05:59 05:59 05:59 Intake Total 4257 790 Output Total 3800 650 Balance 457 140 - Physical Exam Constitutional: no apparent distress, chronically ill appearing, cachectic Eyes: PERRL, anicteric sclera, EOMI Ears, Nose, Mouth, Throat: moist mucous membranes, hearing normal, ears appear normal Cardiovascular: No JVD, No tachycardia, No edema Respiratory: no respiratory distress, no rales or rhonchi, clear to auscultation Gastrointestinal: normoactive bowel sounds, No tenderness, No ascites Skin: warm, erythema, fluctuance Musculoskeletal: no muscle tenderness, joint tenderness, pain with ROM Neurologic: AAOx3 Psychiatric: interacting appropriately, not anxious, not encephalopathic, thought process linear ICD10 Worksheet Patient Problems: Problems Problem Status Onset Metacarpal bone fracture Acute Osteomyelitis Acute Leukocytosis Acute
[2017-12-04] MEDS ORDERED: BUPIVACAINE 0.5% 30 ML SDV ONE (13:09)
[2017-12-04] MEDS ORDERED: MIDAZOLAM 2 MG/2 ML VIAL IVP ONE (14:58)
[2017-12-04] MEDS ORDERED: MIDAZOLAM 2 MG/2 ML VIAL ONE (14:59)
--- NOTE | 2017-12-04 15:03 | PDANEPAE ---
ANE Past Medical History - Pulmonary History Hx Oxygen in Use at Home: No Hx Sleep Apnea: No Sleep Apnea Screening Result - Last Documented: Positive - Endocrine History Hx Diabetes: No ANE Review of Systems Review of Systems: - Exercise capacity METS (RN): 4 METS ANE Patient History - Allergies Allergies/Adverse Reactions: No Known Allergies Allergy (Verified 12/01/17 15:43) - NPO status NPO Since - Liquids (Date): 12/04/17 NPO Since - Liquids (Time): 00:00 NPO Since - Solids (Date): 12/04/17 NPO Since - Solids (Time): 00:00 - Anes Hx Anes Hx: no prior problems - Smoking Hx Smoking Status: Current every day smoker Marijuana use: Yes ANE Labs/Vital Signs - Labs Result Diagrams: 12/03/17 05:02 12/02/17 05:22 - Vital Signs Blood Pressure: 132/82 Heart Rate: 76 Respiratory Rate: 16 O2 Sat (%): 97 Height: 167.64 cm Weight: 65.771 kg ANE Physical Exam - Airway Neck exam: FROM Mallampati Score: Class 2 Mouth exam: poor dentition - Pulmonary Pulmonary: no respiratory distress, no rales or rhonchi, clear to auscultation - Cardiovascular Cardiovascular: regular rate and rhythym, no murmur, rub, or gallop - ASA Status ASA Status: II ANE Anesthesia Plan Anesthesia Plan: GA w LMA
[2017-12-04] MEDS ORDERED: PROPOFOL 200 MG/20 ML VIAL ONE (15:16)
[2017-12-04] MEDS ORDERED: fentaNYL 100 MCG/2 ML INJ ONE (15:16)
[2017-12-04] MEDS ORDERED: ONDANSETRON 4 MG/2 ML VIAL ONE (15:17)
[2017-12-04] MEDS ORDERED: LIDOCAINE 2% JELLY 5 ML TUBE ONE (15:17)
[2017-12-04] MEDS ORDERED: LIDOCAINE 2% 5 ML SDV ONE (15:17)
[2017-12-04] MEDS ORDERED: POLYMYXIN B SULFATE 500,000 UNIT/10 ML SYR IRR ONE (15:27)
[2017-12-04] MEDS ORDERED: BACITRACIN 50,000 UNITS/10 ML SYR IRR ONE (15:28)
[2017-12-04] MEDS ORDERED: ceFAZolin 2 GM/DEXTROSE 100 ML IV SCH (16:00)
--- NOTE | 2017-12-04 16:12 | POSTOPPROG ---
Post Op Note Date of Operation: 12/04/17 Surgeon: Selena Mcgowan Anesthesiologist: rahat Anesthesia: LMA Pre-op Diagnosis: l thumb infxn Procedure: i&d l thumb Inf/Abcess present in the surg proc area at time of surgery?: Yes Depth: Deep Incisional (Fascial) EBL: 50-100
[2017-12-04] MEDS ORDERED: MEPERIDINE 25 MG/0.5 ML AMP IVP PRN (16:17)
[2017-12-04] MEDS ORDERED: LR 500 ML IV PRN (16:17)
[2017-12-04] MEDS ORDERED: fentaNYL 100 MCG/2 ML INJ IVP PRN (16:17)
[2017-12-04] MEDS ORDERED: ONDANSETRON 4 MG/2 ML VIAL IVP PRN (16:17)
[2017-12-04] MEDS ORDERED: NALOXONE HCL 0.4 MG/ML INJ IVP PRN (16:17)
[2017-12-04] MEDS ORDERED: LABETALOL HCL 5 MG/ML 20 ML MDV IVP PRN (16:17)
[2017-12-04] MEDS ORDERED: PROMETHAZINE HCL 25 MG/ML INJ IVP PRN (16:17)
--- NOTE | 2017-12-04 16:19 | POSTANESTH ---
Post Anesthetic Evaluation Cardiovascular Status: Similar to Pre-Op Cond Respiratory Status: Normal, Stable, Similar to Pre-op Cond. Level of Consciousness/Mental Status: Can Participate in Eval, Mildly Sleepy, Arousable Pain Control: Adequate, Prn Tx Ordered Nausea/Vomiting Control: Adequate, Prn Tx Ordered Complications Possibly Related to Anesthesia: None Noted
--- NOTE | 2017-12-04 16:20 | ASMTCMCOM ---
CM Note CM Note Notes: Pt in OR currently for debridement of thumb, CM to follow for d/c needs. Date Signed: 12/04/2017 04:19 PM Electronically Signed By:JEFF Craft
--- NOTE | 2017-12-04 17:17 | GOP ---
[f rep st] OPERATIVE REPORT DATE OF OPERATION: 12/04/2017 SURGEON: Selena Mcgowan MD ANESTHESIA: By LMA. PREOPERATIVE DIAGNOSIS: Left thumb infection. POSTOPERATIVE DIAGNOSIS: Left thumb infection. PROCEDURE PERFORMED: Left thumb irrigation and debridement. FINDINGS: He has a swollen thumb with no palpable loculation or distinct area of fluid. MRIs reveal ed an area of fluid on either side of the phalanx of the left thumb, deep to the soft tissue. It was decided to do surgery in order to alleviate the issue. INDICATIONS: A 42-year-old male with a several-day history of left thumb pain, worsening with use an d with time. DESCRIPTION OF PROCEDURE: Patient brought to the operating room after the left side had been identif ied as correct side by the patient, nurse and physician. Once in the operating room, he was placed u nder general anesthesia using an LMA. Once asleep, a tourniquet was placed around the upper portion of the left arm and the left upper extremity sterilely prepped and draped in usual fashion, using a G SI solution. Once prepped and draped, the limb was elevated for 2 minutes to allow the blood to drai n. Tourniquet was then inflated to 250 mmHg. A fishmouth incision was made just below the level of the thumb nail, along the skin border, trying to avoid the radial and ulnar digital nerves. Sharp di ssection was carried down through the skin. Some of the subcutaneous layers noted to have a pocket o f purulent fluid that was collected and sent for culture and sensitivities. There was part of the ti p of the bone of the phalanx that was exposed, this was rongeured in order to get rid of some of the softened, what appeared to be infected bone. 1 L of antibiotic solution was irrigated through the wo und using a bulb syringe. Soft tissue was debrided of anything that looked even remotely necrotic an d the bone was scraped with a curette to ensure proper debridement. Once finished, a Glady drain w as placed within the thumb, and the fish mouth incision was closed using a horizontal mattress type s titch. The tourniquet was then released at 12 minutes. 5 cc of Marcaine was infused on either side of the metacarpal in order to gain comfort for the patient. The wound was dressed with Xeroform, 4 x 4's, and tube gauze. Patient was then woken up, extubated. The arm was completely undraped with th e tourniquet removed from the arm. He was then transferred onto a stretcher, and sent to recovery ro in good condition. TOURNIQUET TIME: 12 minutes. /[id number]/MODL
[2017-12-04] MEDS: ceFAZolin 2 GM/SWFI 2 GM/20 ML SYR IVP SCH ×2 (17:18→23:12)
[2017-12-04] MEDS: MELATONIN 3 MG TAB PO SCH (19:51)
[2017-12-05] MEDS: oxyCODONE IR 5 MG TAB PO PRN ×5 (03:55→23:32)
[2017-12-05] MEDS: IBUPROFEN 200 MG TAB PO PRN ×2 (06:31→13:45)
[2017-12-05] MEDS: ceFAZolin 2 GM/SWFI 2 GM/20 ML SYR IVP SCH (08:27)
[2017-12-05] MEDS: ACETAMINOPHEN 325 MG TAB PO PRN (08:27)
[2017-12-05] MEDS: ENOXAPARIN 40 MG/0.4 ML SYR SC SCH (08:27)
[2017-12-05] MEDS ORDERED: MAGNESIUM HYDROXIDE 30 ML UDCUP PO PRN (10:41)
[2017-12-05] MEDS ORDERED: LACTULOSE 20 GM/30 ML UDCUP PO PRN (10:41)
[2017-12-05] MEDS ORDERED: POLYETHYLENE GLYCOL 3350 17 GM PKT PO PRN (10:41)
[2017-12-05] MEDS ORDERED: BISACODYL 10 MG SUPP PR PRN (10:41)
--- NOTE | 2017-12-05 10:46 | HOSPPROG ---
Hospitalist Progress Note Assessment/Plan: # sepsis (fever, leuk) d/t bacteremia/osteo # L thumb osteomyelitis s/p debridement: staph a (susp pending) + GPC from operative cx - cont ancef (consider vanc pending susp) # strep intermedius bacteremia - ancef per ID - repeat BCx NGTD # IV meth use # HCV ab+: LFTs ok Subjective: no BM for a few days; ongoing L thumb pain Objective: Vital Signs Temp Pulse Resp BP Pulse Ox 36.8 C 76 16 95/48 L 94 12/05/17 08:00 12/05/17 08:00 12/05/17 08:00 12/05/17 08:00 12/05/17 08:00 Microbiology 12/04/17 15:50 Gram Stain - Final Other - Eswab 12/04/17 15:50 Mycobacterial Smear (CHELI) - Final Other - Eswab Mycobacterial Culture - Final Laboratory Results 12/05/17 04:15 12/05/17 04:15 12/04/17 12/05/17 12/06/17 05:59 05:59 05:59 Intake Total 790 1100 Output Total 650 2100 Balance 140 -1000 chart reviewed MRI reviewed op note reviewed - Physical Exam Constitutional: no apparent distress, appears nourished Cardiovascular: regular rate and rhythym, no murmur, rub, or gallop Respiratory: no respiratory distress, no rales or rhonchi, clear to auscultation Gastrointestinal: soft, non-tender abdomen, No guarding, No rebound, No distension Musculoskeletal: other (L thumb with bandage, slight amount of blood soaking though) ICD10 Worksheet Patient Problems: Problems Problem Status Onset Leukocytosis Acute Osteomyelitis Acute Metacarpal bone fracture Acute
[2017-12-05] MEDS: ONDANSETRON DISINTEGRATING 4 MG TAB PO PRN ×2 (13:45→19:27)
--- NOTE | 2017-12-05 14:34 | PCMIDPN ---
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 Staph aureus susceptibility profile is pending. Based on this being isolated, will resume vancomycin until susceptibilities available which likely will be tomorrow. * Hepatitis-C: Positive antibody finding discussed with patient. Will need hepatitis B vaccination prior to discharge as these are negative. Will also assess prior immunity to hepatitis A as this would be warranted in the setting of hepatitis C if nonimmune. 12/05/17 14:31 Subjective: Patient complains of left thumb pain. Operative findings noted including presence of osteomyelitis. Objective: Vital Signs Temp Pulse Resp BP Pulse Ox 36.5 C 90 16 106/80 96 12/05/17 11:38 12/05/17 11:38 12/05/17 11:38 12/05/17 11:38 12/05/17 11:38 Microbiology 12/04/17 15:50 Gram Stain - Final Other - Eswab 12/04/17 15:50 Mycobacterial Smear (CHELI) - Final Other - Eswab Mycobacterial Culture - Final Laboratory Results 12/05/17 04:15 12/05/17 04:15 12/04/17 12/05/17 12/06/17 05:59 05:59 05:59 Intake Total 790 1100 Output Total 650 2100 Balance 140 -1000 ESR 33 MM/HR (0-15) H 12/03/17 05:02 C-Reactive Protein 70.9 mg/L (<10.0) H 12/05/17 04:15 Cefazolin # 1 Operative cultures with growth of Staphylococcus aureus and Streptococcus intermedius Blood cultures 1/2 Streptococcus intermedius (have asked lab to perform susceptibility profile on organism) - Physical Exam General Appearance: alert, no apparent distress EENT: poor dentition, No scleral icterus, No conjunctival petechiae Respiratory: lungs clear, No respiratory distress Cardiac/Chest: regular rate, rhythm, No systolic murmur Extremities: inflammation (Left thumb dressed postoperatively; pain with full extension of other digits; no surrounding erythema; no pain with wrist range of motion) Skin: other (Multiple tattoos) ICD10 Worksheet Patient Problems: Problems Problem Status Onset Leukocytosis Acute Osteomyelitis Acute Metacarpal bone fracture Acute
--- NOTE | 2017-12-05 14:55 | SOAPPROG ---
SOAP Progress Note Assessment/Plan: Assessment: Plan: Subjective: states his thumb feels better AVSS dressings intact WBC lower but CRP higher will continue to follow labs will change dressings early this week cont abx Objective: Vital Signs Temp Pulse Resp BP Pulse Ox 36.5 C 90 16 106/80 96 12/05/17 11:38 12/05/17 11:38 12/05/17 11:38 12/05/17 11:38 12/05/17 11:38 Microbiology 12/04/17 15:50 Gram Stain - Final Other - Eswab 12/04/17 15:50 Mycobacterial Smear (CHELI) - Final Other - Eswab Mycobacterial Culture - Final Laboratory Results 12/05/17 04:15 12/05/17 04:15 12/04/17 12/05/17 12/06/17 05:59 05:59 05:59 Intake Total 790 1100 Output Total 650 2100 Balance 140 -1000 ICD10 Worksheet Patient Problems: Problems Problem Status Onset Leukocytosis Acute Osteomyelitis Acute Metacarpal bone fracture Acute
[2017-12-05] MEDS: VANCOMYCIN HCL/NORMAL SALINE 250 ML IV SCH ×2 (15:51→23:32)
[2017-12-05] MEDS: MELATONIN 3 MG TAB PO SCH (19:27)
[2017-12-05] MEDS: SENNOSIDES/DOCUSATE SODIUM TAB PO SCH (21:22)
[2017-12-06] MEDS: IBUPROFEN 200 MG TAB PO PRN ×2 (02:21→09:33)
[2017-12-06] MEDS: oxyCODONE IR 5 MG TAB PO PRN ×3 (05:41→23:12)
[2017-12-06] MEDS: VANCOMYCIN HCL/NORMAL SALINE 250 ML IV SCH (05:42)
[2017-12-06] MEDS: ACETAMINOPHEN 325 MG TAB PO PRN (07:55)
[2017-12-06] MEDS: ENOXAPARIN 40 MG/0.4 ML SYR SC SCH (09:33)
[2017-12-06] MEDS: SENNOSIDES/DOCUSATE SODIUM TAB PO SCH ×2 (09:34→20:19)
--- NOTE | 2017-12-06 12:30 | HOSPPROG ---
Hospitalist Progress Note Assessment/Plan: # sepsis (fever, leuk) d/t bacteremia/osteo # L thumb osteomyelitis s/p debridement: staph a (susp pending) + GPC from operative cx - cont ancef (consider vanc pending susp) # strep intermedius bacteremia - ancef per ID - repeat BCx NGTD # pain - currently getting oxy 10 Q3 and ibup - schedule apap, start tramadol # constipation - bowel reg # GERD - pepcid # IV meth use # HCV ab+: LFTs ok Subjective: ongoing pain from L thumb; only small BMs Objective: Vital Signs Temp Pulse Resp BP Pulse Ox 36.8 C 80 16 115/62 94 12/06/17 08:00 12/06/17 08:00 12/06/17 08:00 12/06/17 08:00 12/06/17 08:00 Microbiology 12/04/17 15:50 Gram Stain - Final Other - Eswab 12/04/17 15:50 Mycobacterial Smear (CHELI) - Final Other - Eswab Mycobacterial Culture - Final Laboratory Results 12/05/17 04:15 12/05/17 04:15 12/05/17 12/06/17 12/07/17 05:59 05:59 05:59 Intake Total 1100 500 400 Output Total 2100 350 Balance -1000 150 400 - Physical Exam Constitutional: no apparent distress, appears nourished Cardiovascular: regular rate and rhythym, no murmur, rub, or gallop Respiratory: no respiratory distress, no rales or rhonchi, reduced air movement Gastrointestinal: normoactive bowel sounds, soft, non-tender abdomen, no palpable masses ICD10 Worksheet Patient Problems: Problems Problem Status Onset Metacarpal bone fracture Acute Osteomyelitis Acute Leukocytosis Acute
[2017-12-06] MEDS: FAMOTIDINE 20 MG TAB PO SCH ×2 (13:00→20:14)
[2017-12-06] MEDS: traMADol 50 MG TAB PO PRN ×2 (13:59→20:14)
--- NOTE | 2017-12-06 14:34 | ASMTCMCOM ---
CM Note CM Note Notes: Letter written for the Court for patient-in his posession. Date Signed: 12/06/2017 02:34 PM Electronically Signed By:Jeanne Irene LCSW
--- NOTE | 2017-12-06 15:15 | SOAPPROG ---
SOAP Progress Note Assessment/Plan: Assessment: Plan: Subjective: states he has some pain but conitues to improve dressing removed and skin intact with no drainage but painful WBC improved but CRP continues to increase if CRP doesn't improve soon, will consider wash-out again Objective: Vital Signs Temp Pulse Resp BP Pulse Ox 36.8 C 80 16 115/62 94 12/06/17 08:00 12/06/17 08:00 12/06/17 08:00 12/06/17 08:00 12/06/17 08:00 Microbiology 12/04/17 15:50 Gram Stain - Final Other - Eswab 12/04/17 15:50 Mycobacterial Smear (CHELI) - Final Other - Eswab Mycobacterial Culture - Final Laboratory Results 12/05/17 04:15 12/05/17 04:15 12/05/17 12/06/17 12/07/17 05:59 05:59 05:59 Intake Total 1100 500 400 Output Total 2100 350 Balance -1000 150 400 ICD10 Worksheet Patient Problems: Problems Problem Status Onset Leukocytosis Acute Osteomyelitis Acute Metacarpal bone fracture Acute
[2017-12-06] MEDS: ACETAMINOPHEN 500 MG TAB PO SCH ×2 (15:21→21:19)
[2017-12-06] MEDS: AMPICILLIN/SULBACTAM 3 GM in NS 100 ML IV SCH ×2 (15:25→20:15)
[2017-12-06] MEDS ORDERED: ACETAMINOPHEN 325 MG TAB PO SCH (16:00)
--- NOTE | 2017-12-06 16:32 | PCMIDPN ---
Assessment/Plan: Assessment/Plan: * Left thumb osteomyelitis/abscess with concomitant Strep intermedius bacteremia status post incision and drainage: Operative cultures with growth of both Streptococcus intermedius, MSSA and Eikenella. Culture findings consistent with skin/oropharyngeal alex potentially associated with nail biting and preceding paronychia. Based on culture findings, will treat with Unasyn which will cover all 3 pathogens. * Hepatitis-C: Positive antibody finding discussed with patient. Will need hepatitis B vaccination prior to discharge as these are negative. Hepatitis A total antibody is pending. 12/06/17 16:28 12/06/17 16:30 Subjective: Patient complains of left-sided thumb pain associated with dressing change. Objective: Vital Signs Temp Pulse Resp BP Pulse Ox 36.8 C 80 16 115/62 94 12/06/17 08:00 12/06/17 08:00 12/06/17 08:00 12/06/17 08:00 12/06/17 08:00 Microbiology 12/04/17 15:50 Gram Stain - Final Other - Eswab 12/04/17 15:50 Mycobacterial Smear (CHELI) - Final Other - Eswab Mycobacterial Culture - Final Laboratory Results 12/05/17 04:15 12/05/17 04:15 12/05/17 12/06/17 12/07/17 05:59 05:59 05:59 Intake Total 1100 500 400 Output Total 2100 350 Balance -1000 150 400 ESR 33 MM/HR (0-15) H 12/03/17 05:02 C-Reactive Protein 70.9 mg/L (<10.0) H 12/05/17 04:15 Vancomycin # 1 (antibiotics # 5) Blood cultures 12/01/17 1/2 sets Strep intermedius which is penicillin susceptible Operative cultures with MSSA, Streptococcus intermedius, and Eikenella - Physical Exam General Appearance: alert, no apparent distress EENT: No scleral icterus, No conjunctival petechiae Respiratory: lungs clear, No respiratory distress Cardiac/Chest: regular rate, rhythm, No systolic murmur Extremities: inflammation (Left thumb dressed; pain present at base of thumb without erythema) ICD10 Worksheet Patient Problems: Problems Problem Status Onset Leukocytosis Acute Osteomyelitis Acute Metacarpal bone fracture Acute
[2017-12-06] MEDS: MELATONIN 3 MG TAB PO SCH (20:14)
[2017-12-07] MEDS: AMPICILLIN/SULBACTAM 3 GM in NS 100 ML IV SCH ×4 (03:51→19:53)
[2017-12-07 03:57] LABS: HEPATITIS A ANTIBODY TOTAL NEGATIVE (NEGATIVE)
[2017-12-07] MEDS: oxyCODONE IR 5 MG TAB PO PRN ×6 (04:02→22:09)
[2017-12-07] MEDS: IBUPROFEN 200 MG TAB PO PRN (04:02)
[2017-12-07] MEDS: ACETAMINOPHEN 500 MG TAB PO SCH ×3 (08:16→22:10)
[2017-12-07] MEDS: SENNOSIDES/DOCUSATE SODIUM TAB PO SCH ×2 (08:17→19:53)
[2017-12-07] MEDS: FAMOTIDINE 20 MG TAB PO SCH ×2 (08:18→19:53)
--- NOTE | 2017-12-07 08:18 | HOSPPROG ---
Hospitalist Progress Note Assessment/Plan: Patient is a 42-year-old male who presented the emergency room with left thumb pain. He is currently homeless and came to [place] approximately 5 years ago from [facility]. He was seen in the emergency room yesterday and declined admission. He was given oral antibiotics but did not tolerate them. He admits to using cannabis regularly and last IV methamphetamine was approximately 3 months ago. *sepsis (elevated heart rate, high wbc) -due to bacteremia *Strep intermedius bacteremia -Ancef -repeat bc NGTD -will need 6 weeks of abx *pain -oxy q 3 hours and ibuprofen, tramadol added *constipation *HCV ab+ *Polysubstance abuse -Cannibis use *Plan: will discuss with ID and ortho about plan of care and when they both agree about Franklin's discharge Subjective: Franklin doesn't want any further procedures if possible. Objective: Vital Signs Temp Pulse Resp BP Pulse Ox 36.6 C 63 16 109/63 93 12/07/17 08:00 12/07/17 08:00 12/07/17 08:00 12/07/17 08:00 12/07/17 08:00 Microbiology 12/04/17 15:50 Gram Stain - Final Other - Eswab 12/04/17 15:50 Mycobacterial Smear (CHELI) - Final Other - Eswab Mycobacterial Culture - Final Laboratory Results 12/05/17 04:15 12/07/17 05:05 12/06/17 12/07/17 12/08/17 05:59 05:59 05:59 Intake Total 500 400 500 Output Total 350 Balance 150 400 500 - Physical Exam Constitutional: no apparent distress, appears nourished Eyes: PERRL Ears, Nose, Mouth, Throat: hearing normal Respiratory: no respiratory distress Gastrointestinal: normoactive bowel sounds Skin: warm, other (left thumb in dressing) Musculoskeletal: full muscle strength Neurologic: AAOx3 Psychiatric: interacting appropriately ICD10 Worksheet Patient Problems: Problems Problem Status Onset Leukocytosis Acute Osteomyelitis Acute Metacarpal bone fracture Acute
[2017-12-07] MEDS: ENOXAPARIN 40 MG/0.4 ML SYR SC SCH (08:19)
--- NOTE | 2017-12-07 14:02 | PCMIDPN ---
Assessment/Plan: Assessment: Left thumb osteomyelitis. Status post debridement. Patient states that the discomfort that was a his axillary and epitrochlear region on the left arm is now gone with antibiotics and surgery however the thumb is routing equipment tender postoperatively. Plan would be to continue him on the IV Unasyn while he is inpatient but change him over to IV ertapenem for once daily outpatient therapy. He would have to come to [facility] for infusions. He is willing to do this. He is also willing to stay in shelters during the time needed to treat this infection. He agrees that having an IV placed on a daily basis is more appropriate verses PICC line given his history of IV drug use. Plan: 1. Continue IV Unasyn for now. 2. Anticipate change to IV ertapenem upon discharge. 3. Upon discharge arrange for daily infusions on [address] [place] [address] for total of 6 weeks from debridement. 12/07/17 13:59 Subjective: Patient is resting in his hospital bed. He notes that his left thumb is routing equipment tender postoperatively but he seen improvement in his tenderness with resolution of underarm, epitrochlear wrist pain. No fevers or chills. Objective: Unasyn # 1 (antibiotics # 6) Vital Signs Temp Pulse Resp BP Pulse Ox 36.6 C 63 16 109/63 93 12/07/17 08:00 12/07/17 08:00 12/07/17 08:00 12/07/17 08:00 12/07/17 08:00 Microbiology 12/04/17 15:50 Gram Stain - Final Other - Eswab 12/04/17 15:50 Mycobacterial Smear (CHELI) - Final Other - Eswab Mycobacterial Culture - Final Laboratory Results 12/05/17 04:15 12/07/17 05:05 12/06/17 12/07/17 12/08/17 05:59 05:59 05:59 Intake Total 500 400 500 Output Total 350 Balance 150 400 500 ESR 33 MM/HR (0-15) H 12/03/17 05:02 C-Reactive Protein 70.9 mg/L (<10.0) H 12/05/17 04:15 - Physical Exam General Appearance: WD/WN, alert, no apparent distress, non-toxic Respiratory: lungs clear, normal breath sounds, No respiratory distress Cardiac/Chest: regular rate, rhythm, No tachycardia Extremities: No non-tender, No normal inspection (Dressing covering left base of thumb. No proximal erythema. No strike through dressing.) Skin: normal color, warm/dry, No rash Neuro/Psych: alert, normal mood/affect, oriented x 3 ICD10 Worksheet Patient Problems: Problems Problem Status Onset Leukocytosis Acute Osteomyelitis Acute Metacarpal bone fracture Acute
--- NOTE | 2017-12-07 15:02 | ASMTCMCOM ---
CM Note CM Note Notes: Met with patient to talk about upcoming discharge. He understands that he needs 6 weeks of outpatient IV Ertapenem treatment. He has agreed to come to the Infusion center daily. He usually sleeps outside or occasionally in the warming shelters. I spoke with him about going through [employer], and he understood that this is integral in securing nightly nursing home. I gave him the [facility] pamphlet, and if he is discharged early enough tomorrow, we can help him get over to [facility]. If not, we will reserve a nursing home bed. Date Signed: 12/07/2017 03:01 PM Electronically Signed By:Rere Lynn RN
[2017-12-07] MEDS: traMADol 50 MG TAB PO PRN (17:51)
[2017-12-07] MEDS: MELATONIN 3 MG TAB PO SCH (19:53)
--- NOTE | 2017-12-07 20:44 | SOAPPROG ---
SOAP Progress Note Assessment/Plan: Assessment: Plan: Subjective: states he still has significant pain dressing C&D plan to return to OR tomorrow Objective: Vital Signs Temp Pulse Resp BP Pulse Ox 36.8 C 69 16 103/49 L 96 12/07/17 16:00 12/07/17 16:00 12/07/17 16:00 12/07/17 16:00 12/07/17 16:00 Microbiology 12/04/17 15:50 Gram Stain - Final Other - Eswab Laboratory Results 12/05/17 04:15 12/07/17 05:05 12/06/17 12/07/17 12/08/17 05:59 05:59 05:59 Intake Total 876 298 6359 Output Total 350 500 Balance 150 400 500 ICD10 Worksheet Patient Problems: Problems Problem Status Onset Leukocytosis Acute Osteomyelitis Acute Metacarpal bone fracture Acute
[2017-12-08] MEDS: AMPICILLIN/SULBACTAM 3 GM in NS 100 ML IV SCH ×4 (03:56→21:17)
[2017-12-08] MEDS: oxyCODONE IR 5 MG TAB PO PRN ×5 (03:56→21:19)
[2017-12-08] MEDS: traMADol 50 MG TAB PO PRN (04:37)
[2017-12-08] MEDS: ENOXAPARIN 40 MG/0.4 ML SYR SC SCH (08:57)
[2017-12-08] MEDS: SENNOSIDES/DOCUSATE SODIUM TAB PO SCH ×2 (08:57→21:20)
[2017-12-08] MEDS: ACETAMINOPHEN 500 MG TAB PO SCH ×3 (08:57→21:17)
[2017-12-08] MEDS: FAMOTIDINE 20 MG TAB PO SCH ×2 (08:57→21:18)
--- NOTE | 2017-12-08 09:10 | PCMIDPN ---
Assessment/Plan: Assessment/Plan: 1. Left thumb osteomyelitis: - s/p I * D on 12/04/17 -going back for another I & D later today - Cx polymcrobial with mSsa, strep intermedius and Eikenella - on unasyn. Will need prolonged course of IV atbx around 6 weeks. -continue for now. - care coorindated with JULISSA Crespo unasyn 3g q6- Subjective: afebrile. feels better but thumb is throbbing. denies sob, abd pain or diarrhea. Objective: Vital Signs Temp Pulse Resp BP Pulse Ox 36.4 C 64 16 122/67 H 96 12/08/17 08:00 12/08/17 08:00 12/08/17 08:00 12/08/17 08:00 12/08/17 08:00 Microbiology 12/04/17 15:50 Gram Stain - Final Other - Eswab Laboratory Results 12/05/17 04:15 12/07/17 05:05 12/07/17 12/08/17 12/09/17 05:59 05:59 05:59 Intake Total 400 1000 Output Total 1125 Balance 400 -125 ESR 33 MM/HR (0-15) H 12/03/17 05:02 C-Reactive Protein 70.9 mg/L (<10.0) H 12/05/17 04:15 - Physical Exam General Appearance: alert, no apparent distress Respiratory: lungs clear Cardiac/Chest: regular rate, rhythm Extremities: other (left thumb: patient refused exam due to pain) Abdomen: normal bowel sounds, non-tender, soft, No distended ICD10 Worksheet Patient Problems: Problems Problem Status Onset Leukocytosis Acute Osteomyelitis Acute Metacarpal bone fracture Acute
[2017-12-08] MEDS ORDERED: LR 1,000 ML IV ONE (15:21)
[2017-12-08] MEDS ORDERED: MIDAZOLAM 2 MG/2 ML VIAL IVP ONE (16:05)
--- NOTE | 2017-12-08 16:05 | PDANEPAE ---
ANE History of Present Illness left thum I&D ANE Past Medical History - Cardiovascular History Hx Hypertension: No Hx Arrhythmias: No Hx Chest Pain: No Hx Coronary Artery / Peripheral Vascular Disease: No Hx CHF / Valvular Disease: No Hx Palpitations: No - Pulmonary History Hx COPD: No Hx Asthma/Reactive Airway Disease: No Hx Recent Upper Respiratory Infection: No Hx Oxygen in Use at Home: No Hx Sleep Apnea: No Sleep Apnea Screening Result - Last Documented: Positive - Endocrine History Hx Diabetes: No Hypothyroid: No Hyperthyroid: No Obesity: no - Renal History Hx Renal Disorders: No - Liver History Hx Hepatic Disorders: No Hepatic History Comment: hep C - Neurological & Psychiatric Hx Hx Neurological and Psychiatric Disorders: No ANE Review of Systems Review of systems is: negative Review of Systems: - Exercise capacity Exercise capacity: >=4 METS METS (RN): 4 METS ANE Patient History - Allergies Allergies/Adverse Reactions: No Known Allergies Allergy (Verified 12/01/17 15:43) - NPO status NPO Status: no food or drink >8 hours NPO Since - Liquids (Date): 12/08/17 NPO Since - Liquids (Time): 14:00 NPO Since - Solids (Date): 12/07/17 NPO Since - Solids (Time): 23:00 - Anes Hx Anes Hx: no prior problems - Smoking Hx Smoking Status: Never smoked Marijuana use: Yes - Alcohol Use Alcohol Use: Rarely - Family Anes Hx Family Anes Hx: none ANE Labs/Vital Signs - Labs Result Diagrams: 12/05/17 04:15 12/07/17 05:05 - Vital Signs Vital Signs: reviewed preoperatively; see RN documention for details Blood Pressure: 131/70 Heart Rate: 68 Respiratory Rate: 16 O2 Sat (%): 99 Height: 167.64 cm Weight: 65.771 kg ANE Physical Exam - Airway Neck exam: FROM Mallampati Score: Class 1 - Pulmonary Pulmonary: no respiratory distress - Cardiovascular Cardiovascular: regular rate and rhythym - ASA Status ASA Status: III ANE Anesthesia Plan Anesthesia Plan: GA w LMA
[2017-12-08] MEDS ORDERED: BUPIVACAINE 0.5% 30 ML SDV ONE (16:11)
[2017-12-08] MEDS ORDERED: BACITRACIN 50,000 UNITS/10 ML SYR IRR ONE (16:12)
[2017-12-08] MEDS ORDERED: POLYMYXIN B SULFATE 500,000 UNIT/10 ML SYR IRR ONE (16:12)
[2017-12-08] MEDS ORDERED: LIDOCAINE 2% 5 ML SDV ONE (16:23)
[2017-12-08] MEDS ORDERED: PROPOFOL 200 MG/20 ML VIAL ONE ×2 (16:23→16:24)
[2017-12-08] MEDS ORDERED: fentaNYL 100 MCG/2 ML INJ ONE ×4 (16:23→17:38)
[2017-12-08] MEDS ORDERED: ONDANSETRON 4 MG/2 ML VIAL ONE (16:55)
[2017-12-08] MEDS ORDERED: KETOROLAC 30 MG/1 ML SDV ONE (16:55)
[2017-12-08] MEDS ORDERED: DEXAMETHASONE 4 MG/ML VIAL ONE (16:55)
--- NOTE | 2017-12-08 17:13 | HOSPPROG ---
Hospitalist Progress Note Assessment/Plan: Patient is a 42-year-old male who presented the emergency room with left thumb pain. He is currently homeless and came to [place] approximately 5 years ago from [facility]. He was seen in the emergency room yesterday and declined admission. He was given oral antibiotics but did not tolerate them. He admits to using cannabis regularly and last IV methamphetamine was approximately 3 months ago. *sepsis (elevated heart rate, high wbc) -due to bacteremia * Left thumb osteomyelitis -s/p I & D on 12/04 and to get another I & D today -on Unasyn *Strep intermedius bacteremia -Ancef -repeat bc NGTD -will need 6 weeks of abx *pain -oxy q 3 hours and ibuprofen, tramadol added *constipation *HCV ab+ *Polysubstance abuse -Cannibis use *homelessness -[facility] [place]/ he is agreeable to this *Plan: OR today, appreciate Dr Mcgowan and ID team's involvement. Will need to come to for IV antibiotics. Franklin is very motivated to do this. Subjective: Franklin said he is not having pain, is appreciative to the staff and surgeon. Objective: Vital Signs Temp Pulse Resp BP Pulse Ox 36.8 C 68 16 131/70 H 99 12/08/17 15:19 12/08/17 16:05 12/08/17 16:05 12/08/17 16:05 12/08/17 16:05 Microbiology 12/04/17 15:50 Gram Stain - Final Other - Eswab Laboratory Results 12/05/17 04:15 12/07/17 05:05 12/07/17 12/08/17 12/09/17 05:59 05:59 05:59 Intake Total 400 1000 Output Total 1125 Balance 400 -125 - Physical Exam Constitutional: no apparent distress, appears nourished Eyes: PERRL Ears, Nose, Mouth, Throat: hearing normal Respiratory: no respiratory distress Skin: warm, other (left thumb in dressing) Musculoskeletal: full muscle strength Neurologic: AAOx3 Psychiatric: interacting appropriately ICD10 Worksheet Patient Problems: Problems Problem Status Onset Leukocytosis Acute Osteomyelitis Acute Metacarpal bone fracture Acute
[2017-12-08] MEDS ORDERED: NALOXONE HCL 0.4 MG/ML INJ IVP PRN (17:37)
[2017-12-08] MEDS ORDERED: DIAZEPAM 5 MG/ML 1 ML SYR IVP PRN (17:37)
[2017-12-08] MEDS ORDERED: PROMETHAZINE HCL 25 MG/ML INJ IVP PRN (17:37)
[2017-12-08] MEDS ORDERED: oxyCODONE IR 5 MG TAB PO PRN (17:37)
[2017-12-08] MEDS ORDERED: ALBUTEROL 3 ML DEYVIAL IH PRN (17:37)
[2017-12-08] MEDS ORDERED: ONDANSETRON 4 MG/2 ML VIAL IVP PRN (17:37)
[2017-12-08] MEDS ORDERED: MEPERIDINE 25 MG/0.5 ML AMP IVP PRN (17:37)
--- NOTE | 2017-12-08 17:37 | POSTOPPROG ---
Post Op Note Date of Operation: 12/08/17 Surgeon: Selena Mcgowan Anesthesia: LMA Pre-op Diagnosis: l thumb infection Procedure: l thumb I&D Inf/Abcess present in the surg proc area at time of surgery?: Yes Depth: Deep Incisional (Fascial) EBL: 50-100
[2017-12-08] MEDS ORDERED: HYDROmorphONE/DILAUDID 2 MG/ML INJ ONE (17:38)
[2017-12-08] MEDS: fentaNYL 100 MCG/2 ML INJ IVP PRN ×2 (17:40→17:45)
--- NOTE | 2017-12-08 17:40 | POSTANESTH ---
Post Anesthetic Evaluation Cardiovascular Status: Normal, Stable Respiratory Status: Normal, Stable Level of Consciousness/Mental Status: Can Participate in Eval Pain Control: Adequate, Prn Tx Ordered Nausea/Vomiting Control: Adequate, Prn Tx Ordered Complications Possibly Related to Anesthesia: None Noted
[2017-12-08] MEDS: HYDROmorphONE/DILAUDID 2 MG/ML INJ IVP PRN ×3 (17:44→18:05)
[2017-12-08] MEDS ORDERED: oxyCODONE IR 5 MG TAB ONE (18:01)
--- NOTE | 2017-12-08 18:26 | GOP ---
[f rep st] OPERATIVE REPORT DATE OF OPERATION: 12/08/2017 SURGEON: Selena Mcgowan MD ANESTHESIA: Via LMA. PREOPERATIVE DIAGNOSIS: Left thumb infection. POSTOPERATIVE DIAGNOSIS: Left thumb infection. PROCEDURE PERFORMED: Left thumb repeat irrigation and debridement, with tip amputation. FINDINGS: INDICATIONS: This is a 42-year-old male who had previously undergone a prior I and D of the left percy mb for an infection of the tip of the thumb into the pulp space and the distal phalanx. He continued to have pain and drainage as well as an elevated C-reactive protein and sedimentation rate. At this time, he is taken back to the operating room for further debridement. DESCRIPTION OF PROCEDURE: Patient brought to the operating room after the left thumb had been identi fied as the correct thumb by the patient, nurse and physician. Once in the operating room, he had a tourniquet placed around the upper portion of the left forearm, and was placed under general anesthes ia using an LMA. Once asleep, the left hand was sterilely prepped and draped in the usual fashion us ing GSI solution. It was elevated for 2 minutes, at which point, the tourniquet was inflated to 250 mmHg. The sutures that had previously been in the thumb were removed. He was noted to have a small amount of purulence within the thumb pad, however, the skin at the tip of the thumb had become more n ecrotic and he had debridement of the thumb at its very tip, leaving a T incision on the very tip of the thumb in order to debride back to living, bleeding tissue. 1 L of antibiotic solution was irriga noe through the wound, and the fingernail and nail bed were removed in order to gain good soft tissue coverage of the tip of the thumb as well as closing of the wound. He ended up with a T-type incisio n on the tip of his thumb with sutures in a horizontal mattress type stitch in order to hold the flap s together. Tourniquet was released at 27 minutes. He was dressed with Xeroform, 4 x 4, and tube ga uze. He was completely undraped in the operating room, tourniquet removed from the arm. He was then woken up, extubated, transferred onto a stretcher, and sent to recovery room in good condition. TOURNIQUET TIME: 27 minutes. /[id number]/MODL
[2017-12-08] MEDS: MELATONIN 3 MG TAB PO SCH (21:18)
[2017-12-09] MEDS: MELATONIN 3 MG TAB PO SCH (01:44)
[2017-12-09] MEDS: oxyCODONE IR 5 MG TAB PO PRN ×2 (01:44→06:02)
[2017-12-09] MEDS: AMPICILLIN/SULBACTAM 3 GM in NS 100 ML IV SCH ×2 (01:44→09:06)
[2017-12-09 07:52] VITALS: BP 123/79
[2017-12-09] MEDS: FAMOTIDINE 20 MG TAB PO SCH (09:04)
[2017-12-09] MEDS: ACETAMINOPHEN 500 MG TAB PO SCH (09:04)
[2017-12-09] MEDS: ENOXAPARIN 40 MG/0.4 ML SYR SC SCH (09:05)
[2017-12-09] MEDS: SENNOSIDES/DOCUSATE SODIUM TAB PO SCH (09:05)
--- NOTE | 2017-12-09 09:23 | HOSPPROG ---
Hospitalist Progress Note Assessment/Plan: Patient is a 42-year-old male who presented the emergency room with left thumb pain. He is currently homeless and came to [place] approximately 5 years ago from [facility]. He was seen in the emergency room yesterday and declined admission. He was given oral antibiotics but did not tolerate them. He admits to using cannabis regularly and last IV methamphetamine was approximately 3 months ago. *sepsis (elevated heart rate, high wbc) -due to bacteremia * Left thumb osteomyelitis -s/p I & D on 12/04 and on 12/08 had a tip amputation and I & D -on Unasyn *Strep intermedius bacteremia -Ancef -repeat bc NGTD -will need 6 weeks of abx *pain -oxy q 3 hours and ibuprofen, tramadol added *constipation *HCV ab+ *Polysubstance abuse -Cannibis use *homelessness -recommended he stay at the [facility] at [facility]/ he is agreeable to this *Plan: discussed his care with Dr Chau. in pending. Franklin wants to be discharged badly but willing to stay if needed. Subjective: Franklin has no complaints, anxious to be discharged. Objective: Vital Signs Temp Pulse Resp BP Pulse Ox 36.9 C 68 16 123/79 H 96 12/09/17 07:51 12/09/17 07:51 12/09/17 07:51 12/09/17 07:51 12/09/17 07:51 Microbiology 12/04/17 15:50 Gram Stain - Final Other - Eswab Laboratory Results 12/05/17 04:15 12/07/17 05:05 12/08/17 12/09/17 12/10/17 05:59 05:59 05:59 Intake Total 1000 1120 Output Total 1125 700 Balance -125 420 - Physical Exam Constitutional: no apparent distress, other (thin) Eyes: PERRL Ears, Nose, Mouth, Throat: hearing normal Respiratory: no respiratory distress Skin: warm, other (left thumb w dressing) Musculoskeletal: full muscle strength Neurologic: AAOx3 Psychiatric: interacting appropriately ICD10 Worksheet Patient Problems: Problems Problem Status Onset Leukocytosis Acute Osteomyelitis Acute Metacarpal bone fracture Acute
[2017-12-09] MEDS: IBUPROFEN 200 MG TAB PO PRN (12:26)
--- NOTE | 2017-12-09 13:01 | GDS ---
[f rep st] DISCHARGE SUMMARY DISCHARGE DIAGNOSES: 1. Sepsis due to bacteremia. 2. Left thumb osteomyelitis. 3. Strep intermedius bacteremia. 4. Pain due to this. 5. Constipation. 6. Hepatitis C , + antibody. 7. Polysubstance abuse. 8. Homelessness. CONSULTATION: 1. Dr. Selena Mcgowan. 2. Dr. Linda Story. HISTORY OF PRESENT ILLNESS: Briefly, the patient is a 42-year-old male who is homeless. He came to [place] approximately 5 years ago from [place]. He presented to the emergency room with left thumb pain. He declined admission and was given oral antibiotics. He returned to the emergency room for further evaluation due to the pain. During his stay, he had a MRI performed, which showed cellulitis of the distal thumb, osteomyelitis of the distal phalanx. He was treated with IV antibiotics. His blood cultures grew out Staphylococcus aureus. He was seen and evaluated by Dr. Mcgowan. He has had 2 I and Ds as well as a tip amputation to the left thumb area. Today, the patient is anxious to leave. He will come to [facility] to receive IV antibiotics daily. Dr. Chau will follow up with Dr. Mcgowan in regards to his recent surgery. This will determine how long he will need the antibiotics. HOSPITAL COURSE: 1. Sepsis, resolved. 2. Left thumb osteomyelitis. He is status post I and D on 12/04 and 12/08. He also had a tip amputation. He was treated with Unasyn. He will be discharged and come to [facility] for ertapenem. 3. Strep intermedius bacteremia. Repeat blood culture showed no growth. 4. Pain. He has been managing this well with ibuprofen. 5. Constipation, resolved. 6. HCV AB-positive. Further followup once he establishes primary care doctor. 7. Polysubstance abuse. None during his stay. 8. Homelessness. A bed at the correction has been arranged. DISCHARGE CONDITION: Stable. Blood pressure is 123/79, heart rate is 68, respiratory rate is 16, O2 sats on room air 96%, temperature 36.9 Celsius. MEDICATIONS AT DISCHARGE: Please see the EMR. DISCHARGE INSTRUCTIONS: 1. He is to follow up with Dr. Mcgowan and needs to get instructions on wound care. 2. To come to [facility] to get IV daily antibiotics. The length of time will be determined by the Infectious Disease team. /[id number]/MODL MTDD
--- NOTE | 2017-12-09 13:22 | PCMIDPN ---
Assessment/Plan: Assessment/Plan: * Left thumb osteomyelitis/abscess with concomitant Strep intermedius bacteremia status post incision and drainage: Operative cultures with growth of both Streptococcus intermedius, MSSA and Eikenella. Status post repeat debridement with amputation of tip of thumb. Will review operative findings with Dr. Mcgowan to determine if all infected bone has been excised which would limit need for prolonged antibiotic therapy; if in question if residual osteo present, then will need 6 weeks total of IV antibiotics. Will change Unasyn to ertapenem for outpatient administration daily. Plan infusion with peripheral IV placed on daily basis given prior history of drug use. * Hepatitis-C: Positive antibody finding discussed with patient. 12/09/17 13:20 Subjective: Patient adamant about leaving hospital today. Repeat incision and drainage performed yesterday with tip of thumb amputated. Patient unwilling to stay for dose of ertapenem prior to discharge. Patient notes that he will be compliant with outpatient follow-up. Objective: Vital Signs Temp Pulse Resp BP Pulse Ox 36.9 C 68 16 123/79 H 96 12/09/17 07:51 12/09/17 07:51 12/09/17 07:51 12/09/17 07:51 12/09/17 07:51 Microbiology 12/04/17 15:50 Gram Stain - Final Other - Eswab Laboratory Results 12/05/17 04:15 12/07/17 05:05 12/08/17 12/09/17 12/10/17 05:59 05:59 05:59 Intake Total 1000 1120 Output Total 1125 700 Balance -125 420 ESR 33 MM/HR (0-15) H 12/03/17 05:02 C-Reactive Protein 70.9 mg/L (<10.0) H 12/05/17 04:15 - Physical Exam General Appearance: alert, no apparent distress Extremities: other (Left level dressed postoperatively) ICD10 Worksheet Patient Problems: Problems Problem Status Onset Leukocytosis Acute Metacarpal bone fracture Acute Osteomyelitis Acute
--- NOTE | 2017-12-09 13:45 | ASMTCMCOM ---
CM Note CM Note Notes: Pt medically stable for d/c to the [facility] (bed reserved) and daily IV ertapenem at infusion center. Pt provided bus passes. Pt daily time is 08:00 for a length of time to be determined by ID. Pt will follow up outpatient with ortho. Date Signed: 12/09/2017 01:44 PM Electronically Signed By:JEFF Craft
== END 2017-12-09 12:35 | disposition other institution (70) | DRG 710 ==
LOC: EDUNIT# → F3N 06:36
PROVIDERS: ADMIT Student in an Organized Health Care Education/Training Program; ATTEND Family Medicine
PROC: 0PDS0ZZ Extraction of Left Thumb Phalanx, Open Approach (ICD-10-PCS; principal; 2017-12-04 15:00)
PROC: 0HTQXZZ Resection of Finger Nail, External Approach (ICD-10-PCS; 2017-12-08)
PROC: 0JBK0ZZ Excision of Left Hand Subcutaneous Tissue and Fascia, Open Approach (ICD-10-PCS; 2017-12-08)
DX: A40.8 Other streptococcal sepsis (principal); A41.01 Sepsis due to Methicillin susceptible Staphylococcus aureus; M86.9 Osteomyelitis, unspecified; K59.00 Constipation, unspecified; B19.20 Unspecified viral hepatitis C without hepatic coma; F12.90 Cannabis use, unspecified, uncomplicated; F15.11 Other stimulant abuse, in remission; G47.00 Insomnia, unspecified; Z59.0 Homelessness
CPT/HCPCS: 80307; 86708-90; 96365; 96374; A9585; G0472; G0480; J0295; J0690; J1100; J1170; J1650; J1885; J2060; J2250; J2405; J2704; J3010; J3370

== ENCOUNTER 2017-12-21 16:56 | Inpatient (IN) | payer MEDICAID ==
--- NOTE | 2017-12-21 18:05 | EDPHY ---
H & P Time Seen by Provider: 12/21/17 17:51 HPI/ROS: CHIEF COMPLAINT: "I have been a dummy" HISTORY OF PRESENT ILLNESS: 42-year-old man was hospitalized earlier this month for sepsis due to strep intermedius bacteremia from left thumb osteomyelitis. The patient ended up being discharged on December 09 with a plan to come to [facility] to get IV daily ertapenem. He did not follow up, has not seen a medical provider or received any antibiotics since his discharge. He presents today with 24 hr of worsening left thumb pain and redness radiating up his arm not associated with fevers or chills which is severe. No new injury or trauma. Worse with movement or touch. REVIEW OF SYSTEMS: Eye: no change in vision ENT: no sore throat Cardiac: no chest pain or syncope Pulmonary: Not coughing Abdomen: Nausea but no vomiting or abdominal pain Musculoskeletal: HPI Skin: Left thumb amputation stump redness Neuro: no headache Constitutional: no fever : no urinary symptoms A comprehensive 10 point review of systems is otherwise negative aside from elements mentioned in the history of present illness. PAST MEDICAL HISTORY: Includes osteomyelitis as above, hepatitis-C, substance abuse. Discharge summary dated 12/09/2017 personally reviewed Social history: CBD oil and tobacco General Appearance: Alert and conversant, cooperative. Eyes: No scleral icterus. ENT, Mouth: Normal mucous membranes. Respiratory: Normal respiratory effort, breath sounds equal, lungs are clear to auscultation. Cardiovascular: Regular rate and rhythm. No murmur. Gastrointestinal: Abdomen is soft and non tender. Neurological: Alert, face symmetric, normal motor and sensory in extremities. Skin: Patient has left thumb tip amputation with redness at the stump extending proximally jail down the proximal phalanx. More on dorsal than the volar side. Musculoskeletal: Left thumb tip amputation with sutures still in place, no active drainage or discharge. I can range his MCP joint of his left thumb. He is not tender proximal to that. Psychiatric: Not agitated. Emergency Department course/MDM: Labs ordered including CBC CRP and sed rate. Call is placed infectious disease consultation, Dr. Chau request admission with IV Unasyn, no further imaging at this time, he will consult on the patient. Lactate screening, Unasyn 3 g IV, labs ordered. Oral oxycodone for pain. Does not have SIRS criteria. Smoking Status: Current every day smoker Constitutional: Initial Vital Signs Temperature (C) 36.7 C 12/21/17 17:32 Heart Rate 88 12/21/17 17:32 Respiratory Rate 16 12/21/17 17:32 Blood Pressure 108/72 12/21/17 17:32 O2 Sat (%) 98 12/21/17 17:32 O2 Delivery Mode Room Air Allergies/Adverse Reactions: No Known Allergies Allergy (Verified 12/21/17 18:52) Home Medications: Medication Instructions Recorded NK [No Known Home Meds] 12/21/17 Medical Decision Making Differential Diagnosis: Differential considered including but not limited to cellulitis, fasciitis, osteomyelitis, abscess. Consult/Admit Bed Type: Dr. Hari Chau 1809 admit, unasyn; Blanche 1827 - Data Points Medications Given: Discontinued Medications Sodium Chloride (Ns) 2,000 mls @ 4,000 mls/hr 30 ml/kg infuse over 30 min ( 2000 ml) IV EDNOW ONE PRN Reason: Protocol Stop: 12/21/17 18:39 Last Admin: 12/21/17 19:00 Dose: 2,000 mls Ampicillin Sodium/Sulbactam (Sodium 3 gm/ Sodium Chloride) 100 mls @ 200 mls/ hr IV EDNOW ONE PRN Reason: Protocol Stop: 12/21/17 18:39 Last Admin: 12/21/17 19:26 Dose: 100 mls Ibuprofen (Motrin) 600 mg PO ONCE ONE Stop: 12/21/17 19:30 Last Admin: 12/21/17 19:31 Dose: 600 mg Nicotine (Nicoderm Cq) 21 mg TD EDNOW ONE Stop: 12/21/17 18:56 Last Admin: 12/21/17 18:59 Dose: 21 mg Oxycodone/Acetaminophen (Percocet 5/325) 1 tab PO EDNOW ONE Stop: 12/21/17 18:12 Last Admin: 12/21/17 18:34 Dose: 1 tab Departure - Departure Disposition: [facility] Clinical Impression: Osteomyelitis Qualifiers: Osteomyelitis type: unspecified type Osteomyelitis location: unspecified site Qualified Code(s): M86.9 - Osteomyelitis, unspecified Condition: Good
[2017-12-21] MEDS ORDERED: AMPICILLIN/SULBACTAM 3 GM in NS 100 ML IV ONE (18:10)
[2017-12-21] MEDS ORDERED: NS 2,000 ML IV ONE (18:10)
[2017-12-21] MEDS ORDERED: OXYCODONE/APAP 5/325 TAB PO ONE (18:11)
[2017-12-21] MEDS ORDERED: NICOTINE 21 MG/24 HR PATCH TD ONE ×2 (18:55→18:56)
[2017-12-21] MEDS ORDERED: IBUPROFEN 600 MG TAB PO ONE ×2 (19:29→19:30)
[2017-12-21 19:40] LABS: PLATELET COUNT 386 10^3/uL (150-400)
[2017-12-21] MEDS ORDERED: ONDANSETRON 4 MG/2 ML VIAL IVP PRN (21:13)
--- NOTE | 2017-12-21 21:40 | PDGENHP ---
History and Physical - Chief Complaint thumb pain - History of Present Illness 42 yo homeless male with h/o polysubstance abuse and recent admission for osteomyelitis of left thumb requiring I&D x2 and tip amputation returns to ED with increased pain. He was discharged 12/09/2017 with plans to return to IV infusion center for daily IV Ertapenem. He failed to return for even a single dose of antibiotics because he didn't feel like it. He denies IVDA, but has a h /o IV methamphetamine abuse. Says his last use was "months ago". Reports having some beer and marijuana, but doesn't believe drugs or alcohol contributed to his poor follow up. He denies fevers or chills. In the ED, ID was consulted and recommended IV Unasyn. Pt is admitted for further management. History Information - Allergies/Home Medication List Allergies/Adverse Reactions: No Known Allergies Allergy (Verified 12/21/17 18:52) Home Medications: NK [No Known Home Meds] 12/21/17 [Last Taken Unknown] I have personally reviewed and updated: family history, medical history, social history, surgical history - Past Medical History no pertinent PMH Additional medical history: Left thumb osteomyelitis s/p I&D x2 in 11/2017 and tip amputation. Hep C Ab positive. Homelessness. Polysubstance abuse. H/O IVDA - Surgical History Reports: hernia repair Additional surgical history: Tip amputation left thumb - Family History Positive for: hypertension - Social History Smoking Status: Current every day smoker Alcohol Use: Occasionally Drug Use: Marijuana, Other (H/O IV meth, denies recent use. Currently homeless. ) Review of Systems Review of Systems: ROS: 10pt was reviewed & negative except for what was stated in HPI & below Physical Exam Physical Exam: Temp Pulse Resp BP Pulse Ox 36.7 C 72 16 125/82 H 97 12/21/17 20:09 12/21/17 20:09 12/21/17 20:09 12/21/17 20:09 12/21/17 20:09 Constitutional: no apparent distress Eyes: PERRL Ears, Nose, Mouth, Throat: moist mucous membranes Cardiovascular: regular rate and rhythym, no murmur, rub, or gallop Respiratory: no respiratory distress, clear to auscultation Gastrointestinal: normoactive bowel sounds, soft, non-tender abdomen Skin: warm Musculoskeletal: other (left thumb with erythema of amputation tip, no purulence or lymphangitic streaking) Neurologic: AAOx3 Psychiatric: interacting appropriately Lab Data & Imaging Review 12/21/17 18:50 12/21/17 18:50 WBC 9.55 10^3/uL (3.80-9.50) H 12/21/17 18:50 RBC 3.36 10^6/uL (4.40-6.38) L 12/21/17 18:50 Hgb 10.1 g/dL (13.7-17.5) L 12/21/17 18:50 Hct 30.6 % (40.0-51.0) L 12/21/17 18:50 MCV 91.1 fL (81.5-99.8) 12/21/17 18:50 MCH 30.1 pg (27.9-34.1) 12/21/17 18:50 MCHC 33.0 g/dL (32.4-36.7) 12/21/17 18:50 RDW 16.5 % (11.5-15.2) H 12/21/17 18:50 Plt Count 386 10^3/uL (150-400) 12/21/17 18:50 MPV 11.1 fL (8.7-11.7) 12/21/17 18:50 Neut % (Auto) 58.0 % (39.3-74.2) 12/21/17 18:50 Lymph % (Auto) 27.9 % (15.0-45.0) 12/21/17 18:50 [place] % (Auto) 10.5 % (4.5-13.0) 12/21/17 18:50 Eos % (Auto) 2.7 % (0.6-7.6) 12/21/17 18:50 Baso % (Auto) 0.5 % (0.3-1.7) 12/21/17 18:50 Nucleat RBC Rel Count 0.0 % (0.0-0.2) 12/21/17 18:50 Absolute Neuts (auto) 5.54 10^3/uL (1.70-6.50) 12/21/17 18:50 Absolute Lymphs (auto) 2.66 10^3/uL (1.00-3.00) 12/21/17 18:50 Absolute Monos (auto) 1.00 10^3/uL (0.30-0.80) H 12/21/17 18:50 Absolute Eos (auto) 0.26 10^3/uL (0.03-0.40) 12/21/17 18:50 Absolute Basos (auto) 0.05 10^3/uL (0.02-0.10) 12/21/17 18:50 Absolute Nucleated RBC 0.00 10^3/uL (0-0.01) 12/21/17 18:50 Immature Gran % 0.4 % (0.0-1.1) 12/21/17 18:50 Immature Gran # 0.04 10^3/uL (0.00-0.10) 12/21/17 18:50 ESR REJ 12/21/17 18:45 VBG Lactic Acid 1.1 mmol/L (0.7-2.1) 12/21/17 18:45 Sodium 144 mEq/L (135-145) 12/21/17 18:50 Potassium 4.4 mEq/L (3.3-5.0) 12/21/17 18:50 Chloride 108 mEq/L (97-110) 12/21/17 18:50 Carbon Dioxide 26 mEq/l (22-31) 12/21/17 18:50 Anion Gap 10 mEq/L (8-16) 12/21/17 18:50 BUN 17 mg/dL (7-23) 12/21/17 18:50 Creatinine 0.7 mg/dL (0.7-1.3) 12/21/17 18:50 Estimated GFR > 60 12/21/17 18:50 Glucose 72 mg/dL (70-100) 12/21/17 18:50 Calcium 8.4 mg/dL (8.5-10.4) L 12/21/17 18:50 Total Bilirubin 0.3 mg/dL (0.1-1.4) 12/21/17 18:50 C-Reactive Protein 5.0 mg/L (<10.0) 12/21/17 18:50 Assessment & Plan Assessment: Osteomyelitis (Acute) - S/P I&D x2 and tip amputation. Strep intermedius on previous blood culture and wound culture. Repeat BCx's negative. No evidence of sepsis and wbc's down since discharge. Did not adhere to outpatient treatment plan. -Admit for IV Unasyn -defer further imaging at this time -ID to see in am Hep C Ab positive - outpt f/u H/O polysubstance abuse - check drug screen Homelessness - CM consult DVT PPLX - low risk, SCD's Full code Dispo - admit to inpt, anticipate >48 hrs hospitalization for management of osteomyelitis and need for IV atbx
[2017-12-22] MEDS: AMPICILLIN/SULBACTAM 3 GM in NS 100 ML IV SCH ×4 (01:43→19:29)
[2017-12-22 04:39] LABS: PLATELET COUNT 369 10^3/uL (150-400)
[2017-12-22] MEDS: IBUPROFEN 200 MG TAB PO PRN ×2 (06:42→13:44)
--- NOTE | 2017-12-22 08:36 | PCMIDPN ---
Assessment/Plan: # L Thumb osteomyelitis with culture showing MSSA, strep intermedius and Eikenella, no antibiotics since 12/10/17. Difficult to assess if clean margins from OR. Only got 7 days antibiotics following debridement 12/04. Generally thumb looks a bit swollen, CRP normal. Slight elevation WBC --continue IV Unasyn --ortho to evaluate today, discussed with Dr. Mcgowan --will have to consider keeping patient inpatient for IV therapy versus risk/ benefit of the transition to p.o. # Streptococcus intermedius bacteremia, source thumb osteomyelitis; 12/02/2017 blood cultures negative, Rec'd 10 days antibiotics for bacteremia --IV Unasyn # H/O drug use: tox only positive MJ, HCV Ab + Meds Unasyn 3gm IV q6h Microbiology 12/04/17 15:50 L Thumb Cx MSSA, Streptococcus Intermedius Eikenella Corrodens 12/02/17 05:22 Blood Cx (2) neg 12/01/17 17:35 Blood Cx (1/2): Streptococcus Intermedius Subjective: 42-year-old male who is homeless with recent hospitalization for Streptococcus intermedius bacteremia due to left thumb osteomyelitis with OR culture showing Streptococcus intermedius, methicillin-susceptible Staph aureus and Eikenella. Patient basically only received antibiotics while he was hospitalized +1 day, then was lost to follow-up. He received antibiotics 12/02-12/10. He re- presented yesterday with increasing left thumb pain. Also describes possible chills the last couple days. Pain and not as severe as before. He feels he will be unable to come to the infusion center daily, stating "I ready proved that I failed that once." Objective: Vital Signs Temp Pulse Resp BP Pulse Ox 36.5 C 70 15 114/65 99 12/22/17 07:50 12/22/17 07:50 12/22/17 07:50 12/22/17 07:50 12/22/17 07:50 Laboratory Results 12/22/17 04:25 12/21/17 18:50 12/21/17 12/22/17 12/23/17 05:59 05:59 05:59 Intake Total 450 Output Total 700 Balance -250 ESR REJ 12/21/17 18:45 C-Reactive Protein 5.0 mg/L (<10.0) 12/21/17 18:50 Laboratory Tests 12/02/17 12/03/17 12/05/17 05:22 05:02 04:15 C-Reactive Protein 32.7 H 60.6 H 70.9 H 12/21/17 18:50 C-Reactive Protein 5.0 - Physical Exam General Appearance: alert, no apparent distress EENT: poor dentition, No scleral icterus, No pale conjunctiva, No thrush Respiratory: lungs clear, No accessory muscle use Neck: supple Cardiac/Chest: regular rate, rhythm, No systolic murmur Extremities: swelling (L thumb swollen, tender w stitches in place mild pink discoloration, no erythema; no discharge, radial pulse) Skin: other (Multiple tattoos), No rash Neuro/Psych: alert, normal mood/affect, oriented x 3 - Time Spent With Patient Time Spent with Patient: greater than 35 minutes Time Spent with Patient: Greater than 35 minutes spent on this patients care, greater than 50% of time spent counseling, educating, and coordinating care regarding the above mentioned plan. ICD10 Worksheet Patient Problems: Problems Problem Status Onset Osteomyelitis Acute Leukocytosis Acute Metacarpal bone fracture Acute
[2017-12-22] MEDS: oxyCODONE IR 5 MG TAB PO PRN ×3 (10:01→20:26)
--- NOTE | 2017-12-22 12:25 | HOSPPROG ---
Hospitalist Progress Note Assessment/Plan: 42y male with thumb pain. # L Thumb osteomyelitis -culture showing MSSA, strep intermedius and Eikenella, -no antibiotics since 12/10/17. -Only got 7 days antibiotics following debridement 12/04. -continue IV Unasyn -ortho to evaluate today -will have to consider keeping patient inpatient for IV therapy versus risk/ benefit of the transition to p.o. # Streptococcus intermedius bacteremia, -source thumb osteomyelitis; -12/02/2017 blood cultures negative, -Rec'd 10 days antibiotics for bacteremia # H/O drug use: -tox only positive MJ, HCV Ab + #Dispo -unclear, pt noncompliant with abx therapy. Subjective: Feels fine. Thumb hurts. Objective: Vital Signs Temp Pulse Resp BP Pulse Ox 36.3 C 65 16 116/74 99 12/22/17 11:46 12/22/17 11:46 12/22/17 11:46 12/22/17 11:46 12/22/17 11:46 Laboratory Results 12/22/17 04:25 12/21/17 18:50 12/21/17 12/22/17 12/23/17 05:59 05:59 05:59 Intake Total 450 450 Output Total 700 Balance -250 450 - Physical Exam Constitutional: no apparent distress, appears nourished Eyes: PERRL, anicteric sclera Ears, Nose, Mouth, Throat: moist mucous membranes, hearing normal Cardiovascular: regular rate and rhythym, No JVD Respiratory: no respiratory distress, reduced air movement Gastrointestinal: No tenderness, No ascites Skin: warm, erythema, induration Musculoskeletal: normal joint ROM, no joint effusions, generalized weakness Neurologic: AAOx3 Psychiatric: interacting appropriately, not anxious, not encephalopathic ICD10 Worksheet Patient Problems: Problems Problem Status Onset Metacarpal bone fracture Acute Osteomyelitis Acute Leukocytosis Acute
--- NOTE | 2017-12-22 13:20 | GCON ---
[f rep st] CONSULTATION INPATIENT CONSULT DATE OF CONSULTATION: 12/22/2017 CURRENT COMPLAINT: Left thumb pain. HISTORY OF PRESENT ILLNESS: The patient is a 42-year-old male whom I had previously seen approximate ly 2 weeks ago in the hospital as an inpatient consult for a left thumb infection. He underwent 2 watson rgeries in order to wash out the infection he had within his thumb. He ended up with I and D, as wel l as a partial amputation of his thumb. As soon as he had a second surgery, he left the hospital aga inst medical advice and did not take the antibiotics as had been prescribed. He returns due to pain in the thumb and possible recurrence of his infection. PHYSICAL EXAM: Patient is neurologically intact to the radial and ulnar border of the thumb. He has bright pink tissue around the area, but no areas of drainage or fluctuance noted, although he does h ave significant pain. He is able to move his IP joint of the thumb without too much pain. LABORATORY DATA: Labs reveal an elevated white count of 10.28; however, his C-reactive protein is no rmal at 5.0. ASSESSMENT/PLAN: The patient is status post left thumb infection, although his white count is somewhat suspect. The f act that his C-reactive protein is so low suggests he does not have an active infection, despite him not taking his antibiotics. Despite this, I would like him to continue with his antibiotic course. We will continue to follow him. We will reassess his thumb in 24 hours and see if he needs surgery. In the meantime, he will be booked for surgery for tomorrow in case he does need a formal washout. /[id number]/MODL
--- NOTE | 2017-12-22 13:40 | PDMN ---
Medical Necessity Medical necessity: Pt meets IP criteria per MD; est los >2 mn for eval/tx of L thumb osteomyelitis s/p I&D x2 w/tip amputation & failure to comply w/ outpatient treatment plan; admit for further monitoring, ID consult & IV abx; hx IV drug use & homelessness; per H&P & order 12/21/17
--- NOTE | 2017-12-22 15:06 | ASMTCMCOM ---
CM Note CM Note Notes: Pt in for L thumb osteomyelitis. Pt was at [facility] 12/02/17 to 12/09/17 receiving antibiotic therapy. Pt d/c 12/09/17 scheduled for daily infusions at infusion center at 08:00. Chart review indicates pt went to one infusion 12/10/17 and has not complied with treatment after. Ortho consulting, pt may need surgery. Pt has a history of IV drug use. Pt currently on IV Unasyn, d/c antibiotic needs unknown. CM to follow. Date Signed: 12/22/2017 03:06 PM Electronically Signed By:JEFF Craft
[2017-12-22] MEDS: NICOTINE 21 MG/24 HR PATCH TD SCH (19:53)
[2017-12-23] MEDS: AMPICILLIN/SULBACTAM 3 GM in NS 100 ML IV SCH ×4 (01:26→19:34)
[2017-12-23] MEDS: ONDANSETRON DISINTEGRATING 4 MG TAB PO PRN (01:31)
[2017-12-23] MEDS: oxyCODONE IR 5 MG TAB PO PRN ×3 (05:39→18:08)
[2017-12-23] MEDS: NICOTINE 21 MG/24 HR PATCH TD SCH (08:56)
[2017-12-23] MEDS: IBUPROFEN 200 MG TAB PO PRN ×2 (09:01→20:09)
--- NOTE | 2017-12-23 10:06 | PCMIDPN ---
Assessment/Plan: # L Thumb osteomyelitis with culture showing MSSA, strep intermedius and Eikenella, no antibiotics since 12/10/17. Difficult to assess if clean margins from OR. Only got 7 days antibiotics following debridement 12/04. L thumb draining today and less pink and less tender --continue IV Unasyn --lean toward debridement of thumb again, await Dr. Mcgowan assessment --challenging to set up skilled nursing IV antibiotics due to refusal to come to infusion center, [facility] # Streptococcus intermedius bacteremia, source thumb osteomyelitis; 12/02/2017 blood cultures negative --IV Unasyn # H/O drug use: tox only positive MJ, HCV Ab + Meds Unasyn 3gm IV q6h, #2 Microbiology 12/04/17 15:50 L Thumb Cx MSSA, Streptococcus Intermedius Eikenella Corrodens 12/02/17 05:22 Blood Cx (2) neg 12/01/17 17:35 Blood Cx (1/2): Streptococcus Intermedius Care coordinated with Rebekah Mcfadden [employer]IOR NET DEVELOPER and Selena Mcgowan MD Subjective: less thumb pain today hungry NPO Objective: Vital Signs Temp Pulse Resp BP Pulse Ox 36.7 C 62 15 90/45 L 95 12/23/17 07:50 12/23/17 07:50 12/23/17 07:50 12/23/17 07:50 12/23/17 07:50 Laboratory Results 12/23/17 04:48 12/21/17 18:50 12/22/17 12/23/17 12/24/17 05:59 05:59 05:59 Intake Total 450 950 Output Total 700 Balance -250 950 ESR 4 MM/HR (0-15) 12/23/17 04:48 C-Reactive Protein < 5.0 mg/L (<10.0) 12/23/17 04:48 - Physical Exam General Appearance: alert, no apparent distress Respiratory: No accessory muscle use Extremities: other (L thumb with swelling, less pinkness than yesterday + purulent discharge; radial pulse intact) Skin: No diaphoresis, No rash Neuro/Psych: alert, normal mood/affect, oriented x 3, other (ambulating in room) - Time Spent With Patient Time Spent with Patient: greater than 25 minutes Time Spent with Patient: Greater than 25 minutes spent on this patients care, greater than 50% of time spent counseling, educating, and coordinating care regarding the above mentioned plan. ICD10 Worksheet Patient Problems: Problems Problem Status Onset Osteomyelitis Acute Leukocytosis Acute Metacarpal bone fracture Acute
--- NOTE | 2017-12-23 11:24 | ASMTLACE ---
GLENIS Acuity / Level of Answers: Yes Care: Did the patient have an inpatient admission? Comorbidities - select Answers: Other Notes: hep C ab positive all that apply # of Emergency department Answers: 3-4 visits in the last 6 months Social determinants Answers: History of substance abuse (ETOH, street drugs, prescription drugs, etc.) Homelessness (street, detention) Lack of community resources and/or lack of social support (no pcp, lives alone, transportation, diana d) Score: 17 Date Signed: 12/23/2017 11:24 AM Electronically Signed By:Tram Treadwell RN
--- NOTE | 2017-12-23 11:24 | ASMTCMCOM ---
CM Note CM Note Notes: I have discussed this case with hospital medicine. Patient will likely need another I&D of thumb. We discussed the possibility of making referrals to SNFs. Patient will more than likely be a very difficult placement d/t his hx of polysubstance abuse and hx of non-compliance. PAINT DEPARTMENT SUPERVISOR felt like it was okay to hold off on SNF placement process at this time. CM will continue to follow for any antibiotic needs. Date Signed: 12/23/2017 11:23 AM Electronically Signed By:Tram Treadwell RN
--- NOTE | 2017-12-23 13:03 | HOSPPROG ---
Hospitalist Progress Note Assessment/Plan: 42y male with thumb pain. # L Thumb osteomyelitis -culture showing MSSA, strep intermedius and Eikenella, -no antibiotics since 12/10/17. -Only got 7 days antibiotics following debridement 12/04. -continue IV Unasyn -ortho following, consider further surgery. -will have to consider keeping patient inpatient for IV therapy versus risk/ benefit of the transition to p.o. # Streptococcus intermedius bacteremia, -source thumb osteomyelitis; -12/02/2017 blood cultures negative, -Rec'd 10 days antibiotics for bacteremia # H/O drug use: -tox only positive MJ, HCV Ab + #Dispo -unclear, pt noncompliant with abx therapy. Subjective: Feeling fine. No issues. Objective: Vital Signs Temp Pulse Resp BP Pulse Ox 36.7 C 64 16 108/72 97 12/23/17 12:50 12/23/17 12:50 12/23/17 12:50 12/23/17 12:50 12/23/17 12:50 Laboratory Results 12/23/17 04:48 12/21/17 18:50 12/22/17 12/23/17 12/24/17 05:59 05:59 05:59 Intake Total 450 950 Output Total 700 Balance -250 950 - Physical Exam Constitutional: no apparent distress, appears nourished Eyes: PERRL, anicteric sclera Ears, Nose, Mouth, Throat: moist mucous membranes, hearing normal Cardiovascular: No JVD, No edema Respiratory: no respiratory distress, no rales or rhonchi Gastrointestinal: No tenderness, No ascites Skin: warm, erythema Musculoskeletal: full muscle strength, muscular tenderness Neurologic: AAOx3 Psychiatric: not anxious, poor insight, poor judgement ICD10 Worksheet Patient Problems: Problems Problem Status Onset Metacarpal bone fracture Acute Osteomyelitis Acute Leukocytosis Acute
[2017-12-23] MEDS ORDERED: BUPIVACAINE 0.5% 30 ML SDV ONE ×2 (13:34→15:30)
[2017-12-23] MEDS ORDERED: POLYMYXIN B SULFATE 500,000 UNIT/10 ML SYR IRR ONE (13:34)
[2017-12-23] MEDS ORDERED: BACITRACIN 50,000 UNITS/10 ML SYR IRR ONE ×2 (13:34→13:35)
[2017-12-23] MEDS ORDERED: MIDAZOLAM 2 MG/2 ML VIAL ONE (13:58)
[2017-12-23] MEDS ORDERED: MIDAZOLAM 2 MG/2 ML VIAL IVP ONE (13:59)
--- NOTE | 2017-12-23 13:59 | PDANEPAE ---
ANE History of Present Illness i&d thumb ANE Past Medical History - Cardiovascular History Hx Hypertension: No Hx Arrhythmias: No Hx Chest Pain: No Hx Coronary Artery / Peripheral Vascular Disease: No Hx CHF / Valvular Disease: No Hx Palpitations: No - Pulmonary History Hx COPD: No Hx Asthma/Reactive Airway Disease: No Hx Recent Upper Respiratory Infection: No Hx Oxygen in Use at Home: No Hx Sleep Apnea: No Sleep Apnea Screening Result - Last Documented: Negative - Neurologic History Hx Cerebrovascular Accident: No Hx Seizures: No Hx Dementia: No - Endocrine History Hx Diabetes: No Hypothyroid: No Hyperthyroid: No - Renal History Hx Renal Disorders: No - Liver History Hx Hepatic Disorders: Yes Hepatic History Comment: hep C - Neurological & Psychiatric Hx Hx Neurological and Psychiatric Disorders: No - GI History Hx Gastrointestinal Disorders: Yes ANE Review of Systems Review of Systems: - Exercise capacity Exercise capacity: >=4 METS ANE Patient History - Allergies Allergies/Adverse Reactions: No Known Allergies Allergy (Verified 12/21/17 18:52) - Home Medications Home Medications: NK [No Known Home Meds] 12/21/17 [Last Taken Unknown] - NPO status NPO Status: no food or drink >8 hours NPO Since - Liquids (Date): 12/23/17 NPO Since - Liquids (Time): 00:01 NPO Since - Solids (Date): 12/23/17 NPO Since - Solids (Time): 00:01 - Anes Hx Anes Hx: no prior problems - Smoking Hx Smoking Status: Current every day smoker - Alcohol Use Alcohol Use: Occasionally ANE Labs/Vital Signs - Labs Result Diagrams: 12/23/17 04:48 12/21/17 18:50 - Vital Signs Blood Pressure: 93/64 Heart Rate: 64 Respiratory Rate: 16 O2 Sat (%): 97 Height: 167.64 cm Weight: 65.771 kg ANE Physical Exam - Airway Mallampati Score: Class 2 Mouth exam: normal dental/mouth exam - Pulmonary Pulmonary: no respiratory distress - Cardiovascular Cardiovascular: regular rate and rhythym - ASA Status ASA Status: II ANE Anesthesia Plan Anesthesia Plan: GA w LMA
[2017-12-23] MEDS ORDERED: PROPOFOL 200 MG/20 ML VIAL ONE ×2 (14:20→14:56)
[2017-12-23] MEDS ORDERED: fentaNYL 100 MCG/2 ML INJ ONE ×3 (14:20→16:17)
[2017-12-23] MEDS ORDERED: ONDANSETRON 4 MG/2 ML VIAL ONE (14:30)
[2017-12-23] MEDS ORDERED: KETOROLAC 30 MG/1 ML SDV ONE (14:30)
[2017-12-23] MEDS ORDERED: LIDOCAINE 2% 5 ML SDV ONE (14:30)
[2017-12-23] MEDS ORDERED: DEXAMETHASONE 4 MG/ML VIAL ONE (14:30)
[2017-12-23] MEDS ORDERED: ALBUTEROL 3 ML DEYVIAL IH PRN (15:20)
[2017-12-23] MEDS ORDERED: PHENYLEPHRINE HCL 100 MCG/ML SYR IVP PRN (15:20)
[2017-12-23] MEDS ORDERED: NALOXONE HCL 0.4 MG/ML INJ IVP PRN (15:20)
[2017-12-23] MEDS ORDERED: ONDANSETRON 4 MG/2 ML VIAL IVP PRN (15:20)
--- NOTE | 2017-12-23 15:46 | POSTOPPROG ---
Post Op Note Date of Operation: 12/23/17 Surgeon: Selena Mcgowan Anesthesiologist: zuhair Anesthesia: LMA Pre-op Diagnosis: l thumb infxn Procedure: l thumb I&D and revision amputation Inf/Abcess present in the surg proc area at time of surgery?: Yes Depth: Deep Incisional (Fascial) EBL: 50-100
[2017-12-23] MEDS: fentaNYL 100 MCG/2 ML INJ IVP PRN ×3 (15:58→16:18)
--- NOTE | 2017-12-23 17:52 | GOP ---
[f rep st] OPERATIVE REPORT DATE OF OPERATION: 12/23/2017 SURGEON: Selena Mcgowan MD ANESTHESIA: By LMA. PREOPERATIVE DIAGNOSIS: Left thumb infection. POSTOPERATIVE DIAGNOSIS: Left thumb infection. PROCEDURE PERFORMED: Left thumb incision and drainage with revision thumb amputation. FINDINGS: INDICATIONS: This is a 42-year-old male who, approximately 2 weeks ago, had undergone a left thumb I and D with partial amputation of his finger twice. Left the hospital, did not take his oral antibio tics as instructed, returns 2 weeks later with recurrence of his infection. It was decided to take h im to the operating room for formal I and D. DESCRIPTION OF PROCEDURE: The patient was brought to the operating room after the left side had been identified as correct side by the patient, nurse and physician. Once in the operating room, he was placed under general anesthesia using an LMA. A tourniquet was placed around the upper portion of th e left arm. Left arm was sterilely prepped and draped in the usual fashion using GSI solution. Once prepped and draped, limb was elevated for 2 minutes. Tourniquet inflated to 250 mmHg. The sutures from his prior surgery were removed. The skin had healed well. However, once opened up, he did have a small pocket of purulence noted on the dorsal portion of the thumb. Therefore, the skin was debri ded. The remaining portion of the distal phalanx was removed back to the distal portion of the proxi mal phalanx. The skin was then closed around the distal end and was debrided in order to gain a roun d contour to the thumb. One liter of antibiotic solution had been irrigated through the thumb. Once finished, the tourniquet was deflated at 36 minutes. All skin flaps were noted to pink up well and have good capillary refill. The wound was then dressed with Xeroform and tube gauze. The patient wa s completely undraped in the operating room, had the tourniquet removed from the arm. He was woken u p, extubated, transferred onto a stretcher, and sent to recovery room in good condition. TOURNIQUET TIME: 36 minutes. /[id number]/MODL
[2017-12-24] MEDS: oxyCODONE IR 5 MG TAB PO PRN ×3 (00:15→21:10)
[2017-12-24] MEDS: AMPICILLIN/SULBACTAM 3 GM in NS 100 ML IV SCH ×4 (01:27→18:30)
[2017-12-24] MEDS: ACETAMINOPHEN 325 MG TAB PO PRN ×3 (01:32→22:13)
[2017-12-24] MEDS ORDERED: oxyCODONE IR 5 MG TAB PO ONE (02:29)
[2017-12-24] MEDS: IBUPROFEN 200 MG TAB PO PRN ×2 (02:41→12:24)
[2017-12-24] MEDS: ONDANSETRON DISINTEGRATING 4 MG TAB PO PRN (03:57)
[2017-12-24] MEDS: NICOTINE 21 MG/24 HR PATCH TD SCH (08:17)
--- NOTE | 2017-12-24 09:07 | PCMIDPN ---
Assessment/Plan: # L Thumb osteomyelitis with culture showing MSSA, strep intermedius and Eikenella, patient was non-compliant with outpatient abx infusions --continue IV Unasyn till discharge --considering oral antibiotic therapies--> high dose Augmentin (advantage: likely activity to all organisms isolated; disadvantages: nausea, less bioavailable) vs Moxifloxacin (advantage: oral bioavail; possible disadvantage: reported resistance in s. anginosis group - although Antimicrob. Agents Chemother. November 2011 vol. 56 p. 256 showed strep fully susceptible to moxi but with resistance to levofloxacin) --Plan: oral moxifloxacin 400 mg x1 month with follow-up in my clinic (assure he can get this med refilled) --follow up with me January 01, 2018 at 2pm # Streptococcus intermedius bacteremia, source thumb osteomyelitis; 12/02/2017 blood cultures negative --IV Unasyn # H/O drug use: tox only positive MJ, HCV Ab + Meds Unasyn 3gm IV q6h, #3 Microbiology 12/04/17 15:50 L Thumb Cx MSSA, Streptococcus Intermedius Eikenella Corrodens 12/02/17 05:22 Blood Cx (2) neg 12/01/17 17:35 Blood Cx (1/2): Streptococcus Intermedius Subjective: mild thumb pain feels he can take medication daily cannot come daily for iV antibiotics Objective: Vital Signs Temp Pulse Resp BP Pulse Ox 36.7 C 62 16 133/81 H 98 12/24/17 07:38 12/24/17 07:38 12/24/17 07:38 12/24/17 07:38 12/24/17 07:38 Laboratory Results 12/23/17 04:48 12/21/17 18:50 12/23/17 12/24/17 12/25/17 05:59 05:59 05:59 Intake Total 950 1290 Output Total 250 Balance 950 1040 ESR 4 MM/HR (0-15) 12/23/17 04:48 C-Reactive Protein < 5.0 mg/L (<10.0) 12/23/17 04:48 Gen: nontoxic, fluent speech L thumb dressing in place, no erythema on forearm, no swelling 2+ radial pulse Skin : no rash - Time Spent With Patient Time Spent with Patient: greater than 35 minutes Time Spent with Patient: Greater than 35 minutes spent on this patients care, greater than 50% of time spent counseling, educating, and coordinating care regarding the above mentioned plan. ICD10 Worksheet Patient Problems: Problems Problem Status Onset Osteomyelitis Acute Leukocytosis Acute Metacarpal bone fracture Acute
--- NOTE | 2017-12-24 11:17 | HOSPPROG ---
Hospitalist Progress Note Assessment/Plan: 42y male with thumb pain. Today is my 1st encounter with the patient. Chart reviewed. # L Thumb osteomyelitis -culture showing MSSA, strep intermedius and Eikenella -patient with noncompliance with outpatient antibiotic infusions, -continue IV Unasyn -s/p I & D on this visit # Streptococcus intermedius bacteremia, -source thumb osteomyelitis; -12/02/2017 blood cultures negative, -Rec'd 10 days antibiotics for bacteremia # H/O drug use: -tox only positive MJ, HCV Ab + # nicotine dependence -will add nicotine gum -prefers over patch #Plan. continue current treatment Subjective: Franklin is c/o some pain around left thumb area. Objective: Vital Signs Temp Pulse Resp BP Pulse Ox 36.7 C 62 16 133/81 H 98 12/24/17 07:38 12/24/17 07:38 12/24/17 07:38 12/24/17 07:38 12/24/17 07:38 Laboratory Results 12/23/17 04:48 12/21/17 18:50 12/23/17 12/24/17 12/25/17 05:59 05:59 05:59 Intake Total 950 1290 Output Total 250 Balance 950 1040 - Physical Exam Constitutional: other (thin) Eyes: PERRL Ears, Nose, Mouth, Throat: hearing normal Cardiovascular: regular rate and rhythym Respiratory: no respiratory distress Gastrointestinal: normoactive bowel sounds Skin: warm, other (left thumb in dressing) Musculoskeletal: full muscle strength Neurologic: AAOx3 Psychiatric: interacting appropriately ICD10 Worksheet Patient Problems: Problems Problem Status Onset Osteomyelitis Acute Leukocytosis Acute Metacarpal bone fracture Acute
[2017-12-24] MEDS ORDERED: NICOTINE POLACRILEX 2 MG GUM B PRN (11:21)
[2017-12-24] MEDS ORDERED: BISACODYL 10 MG SUPP PR PRN (12:34)
[2017-12-24] MEDS ORDERED: MAGNESIUM HYDROXIDE 30 ML UDCUP PO PRN (12:34)
[2017-12-24] MEDS ORDERED: LACTULOSE 20 GM/30 ML UDCUP PO PRN (12:34)
[2017-12-24] MEDS: POLYETHYLENE GLYCOL 3350 17 GM PKT PO SCH (13:52)
--- NOTE | 2017-12-24 17:58 | SOAPPROG ---
SOAP Progress Note Assessment/Plan: Assessment: Plan: Subjective: state she has pain dressing intact afebrile cont Abx Objective: Vital Signs Temp Pulse Resp BP Pulse Ox 36.8 C 63 16 121/60 H 95 12/24/17 16:00 12/24/17 16:00 12/24/17 16:00 12/24/17 16:00 12/24/17 16:00 Laboratory Results 12/23/17 04:48 12/21/17 18:50 12/23/17 12/24/17 12/25/17 05:59 05:59 05:59 Intake Total 950 1290 500 Output Total 250 Balance 950 1040 500 ICD10 Worksheet Patient Problems: Problems Problem Status Onset Osteomyelitis Acute Leukocytosis Acute Metacarpal bone fracture Acute
[2017-12-24] MEDS: SENNOSIDES/DOCUSATE SODIUM TAB PO SCH (21:10)
[2017-12-25] MEDS: AMPICILLIN/SULBACTAM 3 GM in NS 100 ML IV SCH ×3 (01:17→13:18)
[2017-12-25] MEDS: SENNOSIDES/DOCUSATE SODIUM TAB PO SCH (07:58)
[2017-12-25] MEDS: POLYETHYLENE GLYCOL 3350 17 GM PKT PO SCH (07:58)
[2017-12-25] MEDS: oxyCODONE IR 5 MG TAB PO PRN ×2 (08:08→15:11)
[2017-12-25] MEDS: IBUPROFEN 200 MG TAB PO PRN ×2 (08:09→15:11)
--- NOTE | 2017-12-25 08:16 | HOSPPROG ---
Hospitalist Progress Note Assessment/Plan: 42y male with thumb pain. # L Thumb osteomyelitis -culture showing MSSA, strep intermedius and Eikenella -patient with noncompliance with outpatient antibiotic infusions, -continue IV Unasyn, reviewed dc planning w Dr Story; will dc on moxifloxacin 400 mg daily, He is scheduled for f/u with her -s/p I & D on this visit # Streptococcus intermedius bacteremia, -source thumb osteomyelitis; -12/02/2017 blood cultures negative, -Rec'd 10 days antibiotics for bacteremia # H/O drug use: -tox only positive MJ, HCV Ab + # nicotine dependence -will add nicotine gum -prefers over patch #Plan. dc home,patient has Medicaid; will get his script filled prior to discharge. Subjective: Franklin is very appreciative, anxious to be dc. Objective: Vital Signs Temp Pulse Resp BP Pulse Ox 37.0 C 69 18 127/69 H 96 12/24/17 23:41 12/24/17 23:41 12/24/17 23:41 12/24/17 23:41 12/24/17 23:41 Laboratory Results 12/23/17 04:48 12/21/17 18:50 12/24/17 12/25/17 12/26/17 05:59 05:59 05:59 Intake Total 1290 1220 Output Total 250 525 Balance 1040 695 - Physical Exam Constitutional: no apparent distress, appears nourished, not in pain Eyes: PERRL Ears, Nose, Mouth, Throat: hearing normal Respiratory: no respiratory distress Skin: warm Musculoskeletal: full muscle strength Neurologic: AAOx3 Psychiatric: interacting appropriately ICD10 Worksheet Patient Problems: Problems Problem Status Onset Osteomyelitis Acute Leukocytosis Acute Metacarpal bone fracture Acute
[2017-12-25 08:57] VITALS: BP 146/80
[2017-12-25] MEDS: NICOTINE 21 MG/24 HR PATCH TD SCH (09:25)
--- NOTE | 2017-12-25 10:26 | GDS ---
[f rep st] DISCHARGE SUMMARY DISCHARGE DIAGNOSES: 1. Left thumb osteomyelitis. 2. Streptococcus intermedius bacteremia. 3. History of drug use. 4. Nicotine dependence. CONSULTATIONS: 1. Dr. Linda Story. 2. Dr. Selena Mcgowan. HISTORY: Briefly, the patient is a 42-year-old gentleman who was recently admitted to [facility] with left thumb cellulitis. At that time , he had an I and D x2 and tip amputation. He returned to the emergency room with increased pain. He was instructed to come to the infusion center for daily IV ertapenem. He did not follow up. He was admitted for further evaluation. He was seen and evaluated by the Infectious Disease team and treated with IV antibiotics. He also was seen and evaluated by Dr. Mcgowan, and during his stay, he had an I and D of the thumb, as well as revision of the thumb amputation. The patient has tolerated the procedure well. He will be discharged home on oral antibiotics and further followup with Dr. Story in the outpatient setting. HOSPITAL COURSE: 1. Left thumb osteomyelitis. His culture showed MSSA, Strep intermedius and Eikenella. He was noncompliant with outpatient antibiotic infusions. He is on IV Unasyn. He will be discharged home on moxifloxacin 400 mg daily. 2. Streptococcus intermedius bacteremia. The source was his thumb osteomyelitis. His blood cultures from 12/02 are negative. 3. History of drug use. His tox screen was positive for cannabis. 4. Nicotine dependence, ongoing. He was given gum to help with this. DISCHARGE CONDITION: Stable. Blood pressure is 146/80. Heart rate is 72. Respiratory rate is 16. O2 sats on room air are 92%. Temperature 36.7 Celsius. DISCHARGE MEDICATIONS: Please see the EMR. DISCHARGE INSTRUCTIONS: 1. He has a followup appointment with Dr. Story on January 01 at 3 p.m. 2. Follow up with Dr. Mcgowan. 3. Side effects of the moxifloxacin, including photosensitivity and interaction with calcium, zinc, and magnesium were given to him. Greater than 30 minutes discharging and coordinating the patient's care. /[id number]/MODL MTDD
--- NOTE | 2017-12-25 15:52 | ASMTCMCOM ---
CM Note CM Note Notes: Pt medically stable for d/c with oral Moxifloxacin. Medicaid did not cover the antibiotic so CM trade show manager Tram Treadwell approved [facility] filling the 14 day script for $81.60. Pt declined detention bed and was provided a bus pass. No other CM d/c needs identified. Date Signed: 12/25/2017 03:51 PM Electronically Signed By:JEFF Craft
== END 2017-12-25 15:17 | disposition home or self-care (01) | DRG 316 ==
LOC: F3N 20:27
PROVIDERS: ADMIT Hospitalist; ATTEND Hospitalist
PROC: 0X6M0Z3 Detachment at Left Thumb, Low, Open Approach (ICD-10-PCS; principal; 2017-12-23 14:00)
DX: M86.142 Other acute osteomyelitis, left hand (principal); R78.81 Bacteremia; B95.61 Methicillin susceptible Staphylococcus aureus infection as the cause of diseases classified elsewhere; T36.96XA Underdosing of unspecified systemic antibiotic, initial encounter; B95.4 Other streptococcus as the cause of diseases classified elsewhere; F17.200 Nicotine dependence, unspecified, uncomplicated; F12.90 Cannabis use, unspecified, uncomplicated; B19.20 Unspecified viral hepatitis C without hepatic coma; Z59.0 Homelessness
CPT/HCPCS: 80307; G0480; J0295; J1100; J1885; J2250; J2370; J2405; J2704; J3010

== ENCOUNTER 2017-12-29 10:21 | Emergency (ER) | payer OTHER, MEDICAID ==
--- NOTE | 2017-12-29 10:31 | EDPHY ---
H & P Smoking Status: Current every day smoker Time Seen by Provider: 12/29/17 10:27 HPI/ROS: CHIEF COMPLAINT: Medical screening for incarceration HISTORY OF PRESENT ILLNESS: 42-year-old male with recent hospital admission for left thumb cellulitis, osteomyelitis, tip amputation with incision and drainage. He was discharged 5 days ago on a course of moxifloxacin which has been compliant with. He arrives in the emergency department via police, in custody of police. He was told to come to the [place] [facility] [place] [facility] because the patient's pill bottle has a combination of Tylenol and moxifloxacin they are unable to differentiate the two medicines and administer them to the patient. Regarding his thumb he states that he has been feeling progressively improvement denies new symptoms. Denies fever chills. PHYSICAL EXAM (Prior to examination, patient consented to physical exam, hands were washed and my usual and customary physical exam procedures followed) 1) GENERAL: Well-developed, well-nourished, alert and oriented. Appears to be in no acute distress. 2) HEAD: Normocephalic 3) HEENT: sclera anicteric 4) LUNGS: Breathing comfortably. 5) SKIN: Left thumb dressing sutures in place. Dressing taken down revealing a well granulating wound with no signs of acute infection. No fetid odor. No drainage. Negative kanavel. No lymphangitic streaking. No crepitus. (Tonie Gaytan) Constitutional: Initial Vital Signs Temperature (C) 36.9 C 12/29/17 10:25 Heart Rate 79 12/29/17 10:25 Respiratory Rate 18 12/29/17 10:25 Blood Pressure 109/70 12/29/17 10:25 O2 Sat (%) 97 12/29/17 10:25 O2 Delivery Mode Room Air Allergies/Adverse Reactions: No Known Allergies Allergy (Verified 12/29/17 10:25) Home Medications: Medication Instructions Recorded Acetaminophen [Tylenol 325mg (*)] 650 mg PO Q4HRS PRN tab 12/25/17 Ibuprofen [Motrin (*)] 600 mg PO Q6H PRN tab 12/25/17 Moxifloxacin [Avelox 400 mg (*)] 400 mg PO DAILY #30 tab 12/25/17 Moxifloxacin [Avelox 400 mg (*)] 400 mg PO DAILY #25 tab 12/29/17 MDM/Departure - [facility] ED Course/Re-evaluation: I reviewed the patient's old medical records. Regarding the patient's history of left thumb osteomyelitis, he appears to be progressing well with no signs of acute infection. He has been compliant with moxifloxacin. Primary reason for being in the ER is he needs a dedicated prescription for moxifloxacin that will be honored at the senior care. I have given him a prescription for moxifloxacin, his wound has been re-dressed. He is planning on following up with Dr. Linda Story in outpatient clinic. Usual and customary wound precautions and instructions provided. Care of patient under supervision of secondary supervising physician Dr Ruelas with whom I discussed case. (Tonie Gaytan) I did not see this patient while he was in the emergency department. However his care was discussed with the PA while the patient was in the department. I agree with treatment plan and management (Micheal Ruelas) - Depart Disposition: Law Enforcement/Court/Detention Clinical Impression: Osteomyelitis left thumb Condition: Good Instructions: Osteomyelitis (ED) Additional Instructions: Return to the ER if you develop redness, swelling, discharge, warmth to the wound, red streaks going up your arm, or any other symptoms that concern you. You are medically cleared for incarceration. Take your medicine as directed. Prescriptions: Moxifloxacin [Avelox 400 mg (*)] 400 mg PO DAILY #25 tab Referrals: Linda Story MD [Medical Doctor] - 5-7 days, call for appt.
[2017-12-29 10:42] VITALS: BP 110/78
== END 2017-12-29 10:49 ==
LOC: EEVIPCON 10:21
DX: M86.9 Osteomyelitis, unspecified (principal); F17.200 Nicotine dependence, unspecified, uncomplicated